=== PATIENT | female | born 1960 | race American Indian/Alaskan Native ===

== ENCOUNTER 2017-08-02 10:02 | Day surgery (SDC) | payer MEDICARE, OTHER ==
[2017-07-29 12:01] VITALS: BMI 28.3
[2017-08-02 10:37] LABS: BASO # 0.03 K/mm3 (0.0-2.0); BASO % 0.7 % (0.0-3.0); EOS # 0.4 (0.0-0.7); EOS % 7.9 % (1.5-5.0); GRAN # 2.44 (1.4-6.5); GRAN % 55.4 % (50.0-68.0); LYMPH # 1.1 (1.2-3.4); LYMPH % 24.7 % (22.0-35.0); MEAN CELL VOLUME 99.2 fl (80.0-105.0); MEAN CORPUSCULAR HEMOGLOBIN 29.5 pg (25.0-35.0); MEAN CORPUSCULAR HGB CONC 29.7 g/dl (31.0-37.0); MONO # 0.5 (0.1-0.6); MONO % 11.3 % (1.0-6.0); RED CELL DISTRIBUTION WIDTH 23.2 % (11.5-14.5); WHITE BLOOD COUNT 4.4 10^3/ul (4.5-11.0)
[2017-08-02 10:46] LABS: CALCIUM 9.8 mg/dL (8.4-10.5); POTASSIUM 4.9 mmol/L (3.6-5.0)
[2017-08-02 10:56] LABS: INR 1.01 (0.93-1.08); PARTIAL THROMBOPLASTIN TIME 27.4 Seconds (25.1-36.5)
[2017-08-02] MEDS ORDERED: Lidocaine 2% Inj (20ml) ONE (12:06)
[2017-08-02] MEDS ORDERED: Midazolam 2 MG/2 ML VIAL ONE ×3 (12:07→14:44)
[2017-08-02] MEDS ORDERED: Vancomycin 500 mg (Oral/Rectal USE) ONE (13:36)
[2017-08-02] MEDS ORDERED: Iodixanol 320 MG/ML 100 ML BOTTLE IV ONE (14:40)
[2017-08-02] MEDS ORDERED: Oxycodone/Acetaminophen 5/325 mg Tab PO PRN (15:20)
[2017-08-02] MEDS ORDERED: Sodium Chloride 0.45% 1,000 ML IV SCH (15:30)
[2017-08-02 16:25] VITALS: BP 136/51; PULSE 65; RESP 18; TEMP 97.9; O2SAT 96
--- NOTE | 2017-08-02 19:40 | VASCULAR ---
PROCEDURE: Replace tunneled trans lumbar dialysis catheter CLINICAL HISTORY: End stage renal disease. Malfunctioning tunneled dialysis catheter. PHYSICIAN(S): Joel Ho M.D. TECHNIQUE: The relative risks and indications for the procedure were explained to the patient and consent obtained. The patient was placed prone on the arteriogram table and the tunneled trans lumbar dialysis catheter prepped and draped in the usual sterile fashion. Antibiotics were given prior to the procedure. 1% Xylocaine was used to anesthetize the skin soft tissues at the vein insertion site. A 2 cm incision was performed and the catheter bluntly dissected. Both ends of the catheter controlled and the catheter transected. The cuff and soft tissue portion of the catheter were anesthetized with 1% Xylocaine. Blunt dissection was performed. The cuffed portion of the catheter was removed. A 0.035 angled Glidewire was advanced through the catheter fragment and advanced to the right atrium. The old catheter was removed. A new 35 cm dialysis catheter was advanced to the hepatic segment of the IVC. The catheter was tunneled. Unfortunately the catheter would not inject or aspirate easily. Subsequently a venogram was performed through the dialysis catheter. 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 0.035 wire was advanced through the catheter. 35 cm catheter was removed. A new 55 cm tunneled dialysis catheter was advanced with its tip in the right atrium. Catheter was tunneled around the right flank. The catheter was flushed and secured. The patient tolerated the procedure well. FINDINGS: There is thrombosis of the hepatic segment of the IVC. The tunnel dialysis catheter had to be advanced into the right atrium. IMPRESSION: 1. Replacement of the patient's tunneled trans lumbar dialysis catheter. 2. 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 The dialysis catheter was advanced into the right atrium.
== END 2017-08-02 18:40 | disposition home or self-care (01) ==
LOC: SDSVAS 10:02
PROVIDERS: ATTEND Radiology Vascular & Interventional Radiology
DX: T82.868A Thrombosis due to vascular prosthetic devices, implants and grafts, initial encounter (principal); N18.6 End stage renal disease; Y84.8 Other medical procedures as the cause of abnormal reaction of the patient, or of later complication, without mention of misadventure at the time of the procedure

== ENCOUNTER 2017-08-03 18:42 | Inpatient (IN) | payer MEDICARE, OTHER ==
[2017-08-03 19:25] LABS: BASO # 0.02 K/mm3 (0.0-2.0); BASO % 0.4 % (0.0-3.0); EOS # 0.3 (0.0-0.7); GRAN # 3.41 (1.4-6.5); GRAN % 61.6 % (50.0-68.0); LYMPH # 1.2 (1.2-3.4); LYMPH % 21.5 % (22.0-35.0); MEAN CELL VOLUME 97.3 fl (80.0-105.0); MEAN CORPUSCULAR HEMOGLOBIN 30.2 pg (25.0-35.0); MEAN PLATELET VOLUME 10.1 fl (7.0-11.0); MONO # 0.6 (0.1-0.6); MONO % 10.5 % (1.0-6.0); RED CELL DISTRIBUTION WIDTH 22.6 % (11.5-14.5); WHITE BLOOD COUNT 5.5 10^3/ul (4.5-11.0)
--- NOTE | 2017-08-03 19:29 | ED PDOC ---
Arrival/HPI - General Historian: Patient <Bebe Fernandez PA-C - Last Filed: 08/03/17 22:49> <Sobeida Escobar - Last Filed: 08/04/17 00:00> - General Chief Complaint: Medical Clearance Time Seen by Provider: 08/03/17 18:52 - History of Present Illness Narrative History of Present Illness (Text): 08/03/17 19:26 57-year-old female with past medical history of diabetes, HIV, end-stage renal disease on dialysis Tuesday and Tuesday, presents for evaluation of failed access site for her dialysis. Patient states that she is here to see Dr. Joel Ho to have an access placed. Patient states the last time she had dialysis was on Tuesday and is due to have one today. Denies any fever, chills, headache, dizziness, chest pain, shortness of breath, abdominal pain, nausea, vomiting. Otherwise the patient has no additional complaints at this time, states that she feels well. PMD Alexsander (Bebe Fernandez PA-C) Past Medical History - Provider Review Nursing Documentation Reviewed: Yes - Infectious Disease Hx of Infectious Diseases: None - Cardiac Hx Pacemaker: No - Pulmonary Hx Respiratory Disorders: No - Neurological Hx Dementia: Yes - HEENT Hx HEENT Disorder: Yes Hx Glaucoma: Yes (L Eye) - Renal Hx Renal Disorder: Yes Hx Dialysis: Yes Date of Last Dialysis Treatment: 07/11/17 - Endocrine/Metabolic Hx Hypothyroidism: Yes - Hematological/Oncological Hx Blood Transfusions: (UNKNOWN) - Integumentary Hx Dermatological Disorder: No - Musculoskeletal/Rheumatological Hx Musculoskeletal Disorders: Yes - Gastrointestinal Hx Gastrointestinal Disorders: No - Genitourinary/Gynecological Hx Genitourinary Disorders: Yes Other/Comment: oliguria, on hemodialysis MWF - Psychiatric Hx Emotional Abuse: No Hx Physical Abuse: No Hx Substance Use: No - Surgical History Hx Amputation: Yes (RIGHT BKA) Hx Orthopedic Surgery: Yes Hx Vascular Access Device: Yes (R lower back area for HD) - Anesthesia Hx Anesthesia Reactions: No - Suicidal Assessment Feels Threatened In Home Enviroment: No <Bebe Fernandez PA-C - Last Filed: 08/03/17 22:49> Family/Social History - Physician Review Nursing Documentation Reviewed: Yes Family/Social History: Unknown Family HX Smoking Status: Former Smoker Hx Alcohol Use: No Hx Substance Use: No <Bebe Fernandez PA-C - Last Filed: 08/03/17 22:49> Allergies/Home Meds <Bebe Fernandez PA-C - Last Filed: 08/03/17 22:49> <Sobeida Escobar - Last Filed: 08/04/17 00:00> Allergies/Adverse Reactions: Allergies No Known Allergies Allergy (Verified 07/29/17 12:01) Home Medications: Home Meds Medication Instructions Recorded Confirmed Nateglinide 60 mg PO DAILY 10/27/13 08/02/17 Brimonidine Tartrate/Timolol 1 drop OP Q12H 12/24/13 08/02/17 [Combigan 0.2%-0.5% Eye Drops] Emtricitabine/Tenofovir Diso 1 tab PO DAILY 07/29/17 08/02/17 [Truvada 200 MG-300 MG] Insulin Human Regular [Novolin R] 1 - 7 unit SC ACHS 07/29/17 08/02/17 Menthol/Zinc Oxide [Calmoseptine 1 applic TP Q8H 07/29/17 08/02/17 Ointment] Review of Systems - Review of Systems Constitutional: Normal. absent: Fatigue, Weight Change, Fevers Respiratory: Normal. absent: SOB, Cough, Sputum Cardiovascular: Normal. absent: Chest Pain, Palpitations, Edema Gastrointestinal: Normal. absent: Abdominal Pain, Stool Changes, Constipation Musculoskeletal: Normal Skin: Normal. absent: Rash, Pruritis, Skin Lesions Neurological: Normal. absent: Headache, Dizziness, Focal Weakness <Bebe Fernandez PA-C - Last Filed: 08/03/17 22:49> Physical Exam <Bebe Fernandez PA-C - Last Filed: 08/03/17 22:49> <Sobeida Escobar - Last Filed: 08/04/17 00:00> - Physical Exam Narrative Physical Exam (Text): 08/03/17 19:29 GENERAL APPEARANCE: Patient is awake, alert, oriented x 3, in no acute distress. SKIN: Warm, dry; (-) cyanosis. EYES: (-) conjunctival pallor. ENMT: Mucous membranes moist. NECK: (-) tenderness, (-) stiffness, (-) lymphadenopathy, (-) JVD. CHEST AND RESPIRATORY: (-) rash, (-) chest wall tenderness. Lungs: (-) rales , (-) rhonchi, (-) wheezes, (-) rub; breath sounds equal bilaterally. HEART AND CARDIOVASCULAR: (-) irregularity; (-) murmur, (-) gallop, (-) rub. ABDOMEN AND GI: (+) dialysis catheter to the R flank, Soft; (-) distention, (- ) tenderness, (-) palpable pulsatile mass. EXTREMITIES: (+) picc line to the R arm, (-) deformity; (-) edema, (-) calf tenderness. (+) distal pulses. NEURO AND PSYCH: Mental status as above. Cranial nerves grossly intact; strength symmetric. (Bebe Fernandez PA-C) Vital Signs Temp Pulse Resp BP Pulse Ox 08/03/17 22:45 68 12 181/75 H 99 08/03/17 22:30 73 182/78 H 98 08/03/17 22:15 78 18 196/80 H 98 08/03/17 22:00 74 16 145/87 94 L 08/03/17 18:52 99.6 F 76 18 130/73 99 Medical Decision Making <Bebe Fernandez PA-C - Last Filed: 08/03/17 22:49> <Sobeida Escobar - Last Filed: 08/04/17 00:00> ED Course and Treatment: 08/03/17 19:28 57-year-old female with past medical history of diabetes, HIV, end-stage renal disease on dialysis Tuesday and Tuesday, presents for evaluation of failed access site for her dialysis, she is here to see Dr. Joel Ho to have an access placed. Dr. Ho called and spoke to the HUMAN RESOURCES PROJECT MANAGER and is requesting for labs and IV access at this time. He is requesting to be called once the lab results have returned. Plan: -- Labs -- IV -- Reassess and disposition HUMAN RESOURCES PROJECT MANAGER attempted to obtain labs from picc line, however she states that the picc line is not functional. IV access obtained instead, labs drawn and sent. Patient went to vascular with Dr. Tete Ho. Labs reviewed. K 5.4. EKG and kayexalate PO ordered. Case d/w Dr. Grace and medical data analyst agree with plan for inpt admit for HD tomorrow. (Jim GARRETT,Bebe Strickland) - Lab Interpretations Lab Results: 08/03/17 19:05 08/03/17 20:09 Lab Results 08/03/17 20:25: Blood Type B POSITIVE, Antibody Screen Negative, BBK History Checked Patient has bt 08/03/17 20:09: Sodium 141, Potassium 5.4 H, Chloride 99, Carbon Dioxide 28, Anion Gap 19, BUN 39 H, Creatinine 7.3 H, Est GFR ( Amer) 7, Est GFR (Non -Af Amer) 6, Random Glucose 78, Calcium 10.0, Total Bilirubin 0.8, AST 25, ALT 15, Alkaline Phosphatase 151 H D, Total Protein 8.9 H, Albumin 3.9, Globulin 5.0 , Albumin/Globulin Ratio 0.8 L 08/03/17 20:09: PT 10.9, INR 1.00, APTT 31.7 08/03/17 19:05: WBC 5.5 D, RBC 4.01, Hgb 12.1, Hct 39.0, MCV 97.3, MCH 30.2, MCHC 31.0, RDW 22.6 H, Plt Count 215, MPV 10.1, Gran % 61.6, Lymph % (Auto) 21.5 L, Dillon % (Auto) 10.5 H, Eos % (Auto) 6.0 H, Baso % (Auto) 0.4, Gran # 3.41 , Lymph # 1.2, Dillon # 0.6, Eos # 0.3, Baso # 0.02 - RAD Interpretation Radiology Orders: 08/03/17 20:00 CAR PERIPHERAL VASCULAR ORDER [VASCULAR] Stat - Medication Orders Current Medication Orders: Discontinued Medications Sodium Polystyrene Sulfonate (Kayexalate Susp) 30 gm PO STAT STA Stop: 08/03/17 20:56 - PA / SUBSTANCE ABUSE COUNSELOR / Resident Statement JACQUE has reviewed & agrees with the documentation as recorded. <Bebe Fernandez PA-C - Last Filed: 08/03/17 22:49> - PA / SUBSTANCE ABUSE COUNSELOR / Resident Statement MD/DO has reviewed & agrees with the documentation as recorded. <Sobeida Escobar - Last Filed: 08/04/17 00:00> Disposition/Present on Arrival - Present on Arrival Any Indicators Present on Arrival: Yes History of DVT/PE: No History of Uncontrolled Diabetes: Yes Urinary Catheter: No History of Decub. Ulcer: No History Surgical Site Infection Following: None - Disposition Have Diagnosis and Disposition been Completed?: Yes Disposition Time: 21:00 Patient Plan: Admission <Bebe Fernandez PA-C - Last Filed: 08/03/17 22:49> <Sobeida Escobar - Last Filed: 08/04/17 00:00> - Disposition Diagnosis: ESRD (end stage renal disease), Hemodialysis catheter malfunction Disposition: HOSPITALIZED Condition: STABLE
[2017-08-03] MEDS ORDERED: Lidocaine 2% Inj (20ml) ONE (19:58)
[2017-08-03] MEDS ORDERED: Midazolam 2 MG/2 ML VIAL ONE ×3 (19:59→21:14)
[2017-08-03] MEDS ORDERED: Iodixanol 320 MG/ML 100 ML BOTTLE IV ONE (20:01)
[2017-08-03 20:33] LABS: ALB/GLOB RATIO 0.8 (1.1-1.8); BILIRUBIN,TOTAL 0.8 mg/dL (0.2-1.3); POTASSIUM 5.4 mmol/L (3.6-5.0); TOTAL PROTEIN 8.9 g/dL (5.8-8.3)
[2017-08-03 20:51] LABS: PARTIAL THROMBOPLASTIN TIME 31.7 Seconds (25.1-36.5)
[2017-08-03] MEDS ORDERED: Sod Polystyrene Sulf 15 gm/60 ml Susp PO STA (20:55)
[2017-08-03] MEDS ORDERED: Vancomycin 500 mg (Oral/Rectal USE) ONE (21:41)
[2017-08-03] MEDS ORDERED: [UNRECOGNIZED DRUG - OTHER] IV ONE (22:22)
--- NOTE | 2017-08-04 01:51 | CP.PCM.HP ---
<Sondra Purcell - Last Filed: 08/04/17 01:43> History of Present Illness - History of Present Illness History of Present Illness: Sondra Purcell DO PGY1 - Internal Medicine H&P CC: Dialysis access HPI: 57 yo F with PMH of diabetes, HTN, HLD, ESRD on HD (MWF), HIV, foot ulcerations, peripheral vascular disease. Presented to the ER for failure of her dialysis access site. According to the son, the pastient last had dialysis on Tuesday (3 days ago), and was due for dialysis yesterday, but in the dialysis center, the access site (in right low back, IVC) was found to be obstructed. She presented to the ER, and now is s/p placement of portacath with Dr. Joel Ho. She is seen at bedside, still sleepy/lethargic after her procedure, but arousable and responsive. She reports feeling well overall, with no particular complaints. She now denies any CP, SOB, fever, chills, N/V/D, headache. 12 point ROS obtained and was negative except as in HPI PMH: As above PSH: Right BKA, multiple AVF, portacath placement today Soc: Denies tobacco, alcohol, or illicits FHx: Noncontributory All: NKDA Present on Admission - Present on Admission Any Indicators Present on Admission: No Past Patient History - Infectious Disease Hx of Infectious Diseases: None - Past Medical History & Family History Past Medical History?: Yes - Past Social History Smoking Status: Former Smoker - CARDIAC Hx Cardiac Disorders: Yes Hx Congestive Heart Failure: Yes Hx Hypertension: Yes - PULMONARY Hx Respiratory Disorders: No - NEUROLOGICAL Hx Dementia: Yes - HEENT Hx HEENT Problems: Yes (wears glasses) Hx Glaucoma: Yes - RENAL Hx Chronic Kidney Disease: Yes Hx Renal Failure: Yes - ENDOCRINE/METABOLIC Hx Endocrine Disorders: Yes Hx Diabetes Mellitus Type 2: Yes Hx Hypothyroidism: Yes - HEMATOLOGICAL/ONCOLOGICAL Hx Blood Disorders: Yes Hx Human Immunodeficiency Virus (HIV): Yes - INTEGUMENTARY Hx Dermatological Problems: No - MUSCULOSKELETAL/RHEUMATOLOGICAL Hx Musculoskeletal Disorders: Yes (Right BKA) - GASTROINTESTINAL Hx Gastrointestinal Disorders: No - GENITOURINARY/GYNECOLOGICAL Hx Genitourinary Disorders: Yes Other/Comment: oliguria, on hemodialysis MWF - PSYCHIATRIC Hx Emotional Abuse: No Hx Physical Abuse: No Hx Substance Use: No - SURGICAL HISTORY Hx Surgeries: Yes Hx Amputation: Yes (Right BKA) - ANESTHESIA Hx Anesthesia Reactions: No Meds Allergies/Adverse Reactions: Allergies Allergy/AdvReac Type Severity Reaction Status Date / Time No Known Allergies Allergy Verified 07/29/17 12:01 Physical Exam - Constitutional Appears: Non-toxic, No Acute Distress, Chronically Ill - Head Exam Head Exam: ATRAUMATIC, NORMOCEPHALIC - Eye Exam Eye Exam: EOMI, Normal appearance - ENT Exam ENT Exam: Mucous Membranes Moist - Neck Exam Neck exam: Positive for: Normal Inspection - Respiratory Exam Respiratory Exam: Clear to Auscultation Bilateral, NORMAL BREATHING PATTERN - Cardiovascular Exam Cardiovascular Exam: REGULAR RHYTHM, +S1, +S2 - GI/Abdominal Exam GI & Abdominal Exam: Normal Bowel Sounds, Soft. absent: Tenderness - Extremities Exam Additional comments: Right BKA, left foot with healing ulcer - Neurological Exam Neurological exam: Alert, Oriented x3 - Psychiatric Exam Psychiatric exam: Normal Affect, Normal Mood - Skin Skin Exam: Dry, Intact Results - Vital Signs Recent Vital Signs: Last Vital Signs Temp 99.6 F 08/03/17 18:52 Pulse 68 08/03/17 22:45 Resp 12 08/03/17 22:45 BP 181/75 H 08/03/17 22:45 Pulse Ox 99 08/03/17 22:45 - Labs Result Diagrams: 08/03/17 19:05 08/03/17 20:09 Assessment & Plan - Assessment and Plan (Free Text) Assessment: 57 yo F with PMH of diabetes, HTN, HLD, ESRD on HD (MWF), HIV, foot ulcerations , peripheral vascular disease. Presented for failed dialysis access, missed dialysis session today; now s/p portacath placement 1. Failed dialysis access, s/p portacath placement - POD0, site appears C/D/I, without bleeding or drainage - IR (Dr. Ho) following, appreciate recs 2. ESRD on HD (M/W/F) - Patient missed scheduled dialysis session yesterday due to failed access, last dialysis on 07/31/17 - Consult nephro, appreciate recs - Plan for HD tomorrow - Continue home meds 3. HTN - Patient has persistently elevated BP, including immediately postoperatively - Current elevation likely 2/2 missed HD session today, while patient is anuric - Patient is asymptomatic, without signs of acute end-organ damage - Resume home meds, continue to monitor 4. h/o DM, HLD, HIV, PVD - Continue home meds GI/DVT Ppx: Protonix, SCDs <Alida Grace - Last Filed: 08/04/17 06:41> Results - Vital Signs Recent Vital Signs: Last Vital Signs Temp 98 F 08/04/17 06:00 Pulse 67 08/04/17 06:00 Resp 20 08/04/17 06:00 BP 135/74 08/04/17 06:00 Pulse Ox 100 08/04/17 06:00 - Labs Result Diagrams: 08/03/17 19:05 08/03/17 20:09 Attending/Attestation - Attestation I have personally seen and examined this patient.: Yes I have fully participated in the care of the patient.: Yes I have reviewed all pertinent clinical information: Yes Notes (Text): 08/04/17 06:39 Patient was seen when she was in bed # 372-01. She was reluctant to talk. Agree with history, physical examination, assessment and plan.
[2017-08-04 02:41] VITALS: BMI 25.4
[2017-08-04] MEDS: Pantoprazole 40 mg EC Tab PO SCH (06:42)
[2017-08-04] MEDS: Multivitamin Vitamin B Complex (Nephro-Vite) Tab PO SCH (09:18)
[2017-08-04 10:35] LABS: BASO # 0.02 K/mm3 (0.0-2.0); BASO % 0.6 % (0.0-3.0); EOS # 0.2 (0.0-0.7); EOS % 6.7 % (1.5-5.0); GRAN # 2.37 (1.4-6.5); HEMATOCRIT 32.5 % (36.0-48.0); LYMPH # 0.7 (1.2-3.4); LYMPH % 19.2 % (22.0-35.0); MEAN CELL VOLUME 98.5 fl (80.0-105.0); MEAN CORPUSCULAR HEMOGLOBIN 29.1 pg (25.0-35.0); MEAN CORPUSCULAR HGB CONC 29.5 g/dl (31.0-37.0); MEAN PLATELET VOLUME 9.9 fl (7.0-11.0); MONO # 0.3 (0.1-0.6); MONO % 7.5 % (1.0-6.0); RED CELL DISTRIBUTION WIDTH 22.3 % (11.5-14.5); WHITE BLOOD COUNT 3.6 10^3/ul (4.5-11.0)
[2017-08-04 11:07] LABS: ALB/GLOB RATIO 0.8 (1.1-1.8); BILIRUBIN,TOTAL 0.6 mg/dL (0.2-1.3); CALCIUM 8.9 mg/dL (8.4-10.5); MAGNESIUM 2.5 mg/dL (1.7-2.2); PHOSPHOROUS 6.4 mg/dL (2.5-4.5); TOTAL PROTEIN 7.5 g/dL (5.8-8.3)
[2017-08-04] MEDS: Lopinavir/Ritonavir Tab PO SCH ×2 (12:07→17:22)
--- NOTE | 2017-08-04 16:48 | CP.PCM.CON ---
History of Present Illness - History of Present Illness History of Present Illness: Initial Nephrology Consultation: Assessment: Stable dialysis access dysfunction, Hyperkalemia Diabetic chronic Kidney Disease (E11.22) Hypertensive Chronic Kidney Disease (I12.0) End stage renal disease (N18.6) dependence on hemodialysis (Z99.2) (MWF) via catheter Anemia (D64.9), Hyperphosphatemia (E83.39), Secondary Hyperparathyroidism (E21.1 ), HTN (I12.0) Plan: for HD today as ordered but unable to complete HD today due to new catheter dysfunction. IR consult for alternative strategy to obtain dialysis access. thereafter, plan for next HD tomorrow continue with Nephrovite 1 tab/day. PRBC as needed for anemia. On SLY as aransep weekly, last Hb 9.8 Continue with phos binders home dose, last phos level 6.4 BP control with meds as ordered. Patient not on RAAS mar but may add if BP high Glycemic control, Dialysis consistent diet Further work up/management as per primary team Dose meds/antibiotics (if needed) for ESRD status. Avoid fleets enema/magnesium based laxatives. d/c plan once has functional dialysis access Thanks for allowing me to participate in care of your patient. Will follow patient with you. Please call if any Qs. d/w team Dr Lobito Jeong Office: [phone] Chief Complaint; unable to get dialysis HPI: Pt is a 57 y/o F with hx of ESRD on hemodialysis (MWF) via IVC catheter, last dialysis tuesday, chronic anemia, hyperphosphatemia, secondary hyperparathyroidism, Diabetes Mellitus, hypertension, HIV came as unable to get dialysis from her access. she has new permacath placed by IR. Denies chest pain, palpitation, shortness of breath, leg swelling she is on HD x [address] Brady @ [facility] ROS: Constitutional Symptoms: Denies fever. No chills. No Recent Weight Changes Eyes: denies change in vision, denies watery eyes, denies double vision Ears/Nose/Mouth/Throat: Denies Abnormal Taste. No Bad breath or Bad Taste. Cardiovascular: No chest pain. There is no shortness of breath. No palpitations. Pulmonary: No shortness of breath or cough. Gastrointestinal: denies abdominal pain No nausea. No vomiting. Denies change in bowel habits. Denies Bleeding Genitourinary: makes no urine Neurological: Denies headaches. No dizziness. Denies loss of balance. Denies weakness, denies tingling/numbness Dermatological: No Rash or Bruising or ulcers. Psychiatric: Denies Anxiety. No depression. Denies hallucinations. Rheumatological: No joint pain. Denies Joint swelling Endocrine: Denies over tiredness. Denies Fatigue and denies Heat/Cold Intolerance. All other negative. Physical Examination: General Appearance: Comfortable, in no acute respiratory distress, co-operative . Vitals reviewed and noted as below Head; Atraumatic, normocephalic ENT: no ulcers no thrush. Tongue is midline. Oropharynx: no rash or ulcers. EYES: Pupils are equal, round and reactive to light accommodation. Eye muscles and extraocular movement intact. Sclera is anicteric. Neck; supple no lymphadenopathy, no thyromegaly or bruit Lungs: Normal respiratory rate/effort. Breath sounds bilateral equal and clear Heart: Normal rate. s1s2 normal. No rub or gallop. Extremities: no edema. No varicose veins. has Rt BKA Neurological: Patient is alert, awake and oriented to person, place and time. No focal deficit. Strength bilateral appropriate and equal Skin: Warm and dry. Normal turgor. No rash. Palpitation: Normal elasticity for age Abdomen: Abdomen is soft. Bowel sounds +. There is no abdominal tenderness, no guarding/rigidity or organomegaly Psych: normal insight and normal affect/mood MSK: no joint tenderness or swelling. Digits and nails normal, no deformity : kidney or bladder not palpable Access: permacath Labs/imaging reviewed. Past medical history, past surgical history, family history, social history, allergy reviewed and noted as below Family Hx: no hx of CKD. Non contributory Past Patient History - Infectious Disease Hx of Infectious Diseases: None - Past Medical History & Family History Past Medical History?: Yes - Past Social History Smoking Status: Former Smoker - CARDIAC Hx Cardiac Disorders: Yes Hx Congestive Heart Failure: Yes Hx Hypertension: Yes - PULMONARY Hx Respiratory Disorders: No - NEUROLOGICAL Hx Dementia: Yes - HEENT Hx HEENT Problems: Yes (wears glasses) Hx Glaucoma: Yes - RENAL Hx Chronic Kidney Disease: Yes Hx Renal Failure: Yes - ENDOCRINE/METABOLIC Hx Endocrine Disorders: Yes Hx Diabetes Mellitus Type 2: Yes Hx Hypothyroidism: Yes - HEMATOLOGICAL/ONCOLOGICAL Hx Blood Disorders: Yes Hx Human Immunodeficiency Virus (HIV): Yes - INTEGUMENTARY Hx Dermatological Problems: No - MUSCULOSKELETAL/RHEUMATOLOGICAL Hx Musculoskeletal Disorders: Yes (Right BKA) - GASTROINTESTINAL Hx Gastrointestinal Disorders: No - GENITOURINARY/GYNECOLOGICAL Hx Genitourinary Disorders: Yes Other/Comment: oliguria, on hemodialysis MWF - PSYCHIATRIC Hx Emotional Abuse: No Hx Physical Abuse: No Hx Substance Use: No - SURGICAL HISTORY Hx Surgeries: Yes Hx Amputation: Yes (Right BKA) - ANESTHESIA Hx Anesthesia Reactions: No Meds Allergies/Adverse Reactions: Allergies Allergy/AdvReac Type Severity Reaction Status Date / Time No Known Allergies Allergy Verified 07/29/17 12:01 - Medications Medications: Current Medications Clopidogrel Bisulfate (Plavix) 75 mg PO DAILY [facility] Last Admin: 08/04/17 12:08 Dose: Not Given Darbepoetin Brian (Aranesp) 40 mcg IVP ONCE ONE Stop: 08/05/17 13:56 Glyburide (Micronase) 1.25 mg PO BRKDIN [facility] Last Admin: 08/04/17 09:19 Dose: Not Given Heparin Sodium (Porcine) (Heparin) 4,000 units IVP TTS [facility] Last Admin: 08/04/17 11:30 Dose: 4,000 units Isosorbide Mononitrate (Imdur) 60 mg PO ACB [facility] Last Admin: 08/04/17 09:18 Dose: 60 mg Lopinavir/Ritonavir (Kaletra 200-50 Mg) 2 cap PO BID [facility] Last Admin: 08/04/17 12:07 Dose: Not Given Metoprolol Tartrate (Lopressor) 25 mg PO BRKDIN [facility] Last Admin: 08/04/17 06:45 Dose: 25 mg Nateglinide (Starlix) 60 mg PO AC [facility] Last Admin: 08/04/17 12:10 Dose: Not Given Pantoprazole Sodium (Protonix Ec Tab) 40 mg PO 0600 [facility] Last Admin: 08/04/17 06:42 Dose: 40 mg Raltegravir (Isentress) 400 mg PO BID [facility] Last Admin: 08/04/17 12:07 Dose: Not Given Sevelamer HCl (Renagel) 800 mg PO TID [facility] Last Admin: 08/04/17 15:34 Dose: 800 mg Vitamin B Complex/Vit C/Folic Acid (Nephro-Анна) 1 tab PO 0800 [facility] Last Admin: 08/04/17 09:18 Dose: 1 tab Results - Vital Signs Recent Vital Signs: Last Vital Signs Temp 98.0 F 08/04/17 06:00 Pulse 72 08/04/17 14:00 Resp 20 08/04/17 06:00 BP 135/74 08/04/17 06:45 Pulse Ox 100 08/04/17 06:00 - Labs Result Diagrams: 08/04/17 10:30 08/04/17 10:30 Labs: Laboratory Results - last 24 hr 08/04/17 08/04/17 10:30 10:30 WBC 3.6 L D RBC 3.30 L Hgb 9.6 L D Hct 32.5 L MCV 98.5 MCH 29.1 MCHC 29.5 L RDW 22.3 H Plt Count 164 MPV 9.9 Gran % 66.0 Lymph % (Auto) 19.2 L Dewitt % (Auto) 7.5 H Eos % (Auto) 6.7 H Baso % (Auto) 0.6 Gran # 2.37 Lymph # 0.7 L Dewitt # 0.3 Eos # 0.2 Baso # 0.02 Sodium 139 Potassium 5.0 Chloride 99 Carbon Dioxide 31 Anion Gap 14 BUN 33 H Creatinine 6.3 H Est GFR ( Amer) 8 Est GFR (Non-Af Amer) 7 Random Glucose 96 Calcium 8.9 Phosphorus 6.4 H Magnesium 2.5 H Total Bilirubin 0.6 AST 29 ALT 23 Alkaline Phosphatase 114 Total Protein 7.5 Albumin 3.3 Globulin 4.2 Albumin/Globulin Ratio 0.8 L
[2017-08-05 06:57] LABS: BASO # 0.01 K/mm3 (0.0-2.0); BASO % 0.2 % (0.0-3.0); EOS # 0.2 (0.0-0.7); EOS % 3.5 % (1.5-5.0); GRAN # 3.99 (1.4-6.5); GRAN % 62.8 % (50.0-68.0); HEMATOCRIT 33.1 % (36.0-48.0); LYMPH # 1.2 (1.2-3.4); LYMPH % 18.8 % (22.0-35.0); MEAN CELL VOLUME 98.2 fl (80.0-105.0); MEAN CORPUSCULAR HEMOGLOBIN 29.4 pg (25.0-35.0); MEAN CORPUSCULAR HGB CONC 29.9 g/dl (31.0-37.0); MONO # 0.9 (0.1-0.6); MONO % 14.7 % (1.0-6.0); WHITE BLOOD COUNT 6.3 10^3/ul (4.5-11.0)
[2017-08-05 07:33] LABS: ALB/GLOB RATIO 0.8 (1.1-1.8); BILIRUBIN,TOTAL 0.6 mg/dL (0.2-1.3); CALCIUM 9.5 mg/dL (8.4-10.5); MAGNESIUM 2.7 mg/dL (1.7-2.2); PHOSPHOROUS 6.9 mg/dL (2.5-4.5); TOTAL PROTEIN 7.9 g/dL (5.8-8.3)
[2017-08-05] MEDS: Pantoprazole 40 mg EC Tab PO SCH (08:20)
[2017-08-05] MEDS: Multivitamin Vitamin B Complex (Nephro-Vite) Tab PO SCH (08:20)
[2017-08-05] MEDS: Lopinavir/Ritonavir Tab PO SCH ×2 (10:00→17:33)
--- NOTE | 2017-08-05 11:41 | CP.PCM.PN ---
<Cristofer Fine - Last Filed: 08/05/17 11:38> Subjective - Date & Time of Evaluation Date of Evaluation: 08/05/17 Time of Evaluation: 09:15 - Subjective Subjective: Medicine progress note: Pt seen and examinned at bedside. No acute events overnight. Pt Portacath not working. Pt states that she is doing well with no complaints. Denies any f/c, headaches, sob, chest pain, n/v/d. Objective - Vital Signs/Intake and Output Vital Signs (last 24 hours): Temp Pulse Resp BP Pulse Ox 98.3 F 68 20 108/54 L 96 08/05/17 05:59 08/05/17 05:59 08/05/17 05:59 08/05/17 05:59 08/05/17 05:59 Intake and Output: 08/05/17 08/05/17 06:59 18:59 Intake Total 360 Balance 360 - Medications Medications: Current Medications Clopidogrel Bisulfate (Plavix) 75 mg PO DAILY [facility] Last Admin: 08/05/17 10:00 Dose: 75 mg Darbepoetin Brian (Aranesp) 40 mcg IVP ONCE ONE Stop: 08/05/17 13:56 Glyburide (Micronase) 1.25 mg PO BRKDIN [facility] Last Admin: 08/05/17 07:50 Dose: Not Given Heparin Sodium (Porcine) (Heparin) 4,000 units IVP TTS [facility] Last Admin: 08/04/17 11:30 Dose: 4,000 units Isosorbide Mononitrate (Imdur) 60 mg PO ACB [facility] Last Admin: 08/04/17 09:18 Dose: 60 mg Lopinavir/Ritonavir (Kaletra 200-50 Mg) 2 cap PO BID [facility] Last Admin: 08/05/17 10:00 Dose: 2 cap Metoprolol Tartrate (Lopressor) 25 mg PO BRKDIN [facility] Last Admin: 08/05/17 09:49 Dose: Not Given Nateglinide (Starlix) 60 mg PO AC [facility] Last Admin: 08/05/17 07:50 Dose: Not Given Pantoprazole Sodium (Protonix Ec Tab) 40 mg PO 0600 [facility] Last Admin: 08/05/17 08:20 Dose: 40 mg Raltegravir (Isentress) 400 mg PO BID [facility] Last Admin: 08/05/17 10:00 Dose: 400 mg Sevelamer HCl (Renagel) 800 mg PO TID [facility] Last Admin: 08/05/17 10:00 Dose: 800 mg Vitamin B Complex/Vit C/Folic Acid (Nephro-Анна) 1 tab PO 0800 [facility] Last Admin: 08/05/17 08:20 Dose: 1 tab - Labs Labs: 08/05/17 06:30 08/05/17 06:30 PT 10.9 SECONDS (9.4-12.5) 08/03/17 20:09 INR 1.00 (0.93-1.08) 08/03/17 20:09 APTT 31.7 Seconds (25.1-36.5) 08/03/17 20:09 - Constitutional Appears: No Acute Distress - Head Exam Head Exam: ATRAUMATIC, NORMOCEPHALIC - Eye Exam Eye Exam: EOMI, PERRL - ENT Exam ENT Exam: Mucous Membranes Moist - Respiratory Exam Respiratory Exam: Clear to Ausculation Bilateral. absent: Rales, Wheezes - Cardiovascular Exam Cardiovascular Exam: REGULAR RHYTHM, +S1, +S2 - GI/Abdominal Exam GI & Abdominal Exam: Soft. absent: Tenderness - Neurological Exam Neurological Exam: Alert, Awake, Oriented x3 - Psychiatric Exam Psychiatric exam: Normal Affect, Normal Mood - Skin Skin Exam: Dry, Intact, Warm Assessment and Plan - Assessment and Plan (Free Text) Assessment: 57 yo F with PMH of diabetes, HTN, HLD, ESRD on HD (MWF), HIV, foot ulcerations , peripheral vascular disease s/p portacath placement which is not functioning. Reconsulted vascular for recs. 1. Failed dialysis access, s/p portacath placement which is not functioning properly - Reconsulted vascular for recs and possible replacement 2. ESRD on HD (M/W/F) - Consult nephro, appreciate recs - Plan for HD once a catheter is functioning - Continue home Aranesp and Renagel 3. HTN - Cont home metoprolol - Continue to monitor 4. Hx of DM - Continue home Glyburide 5. Hx of HIV - Cont home Kaletra and Isentress 6. GI/DVT Ppx: Protonix, SCDs Pt was seen and plan was discussed in detail with Dr Polo. <Shavon Polo - Last Filed: 08/05/17 14:09> Objective - Vital Signs/Intake and Output Vital Signs (last 24 hours): Temp Pulse Resp BP Pulse Ox 98.3 F 68 20 108/54 L 96 08/05/17 05:59 08/05/17 10:00 08/05/17 05:59 08/05/17 05:59 08/05/17 05:59 Intake and Output: 08/05/17 08/05/17 06:59 18:59 Intake Total 360 Balance 360 - Medications Medications: Current Medications Clopidogrel Bisulfate (Plavix) 75 mg PO DAILY [facility] Last Admin: 08/05/17 10:00 Dose: 75 mg Glyburide (Micronase) 1.25 mg PO BRKDIN [facility] Last Admin: 08/05/17 07:50 Dose: Not Given Heparin Sodium (Porcine) (Heparin) 4,000 units IVP TTS [facility] Last Admin: 08/04/17 11:30 Dose: 4,000 units Heparin Sodium (Porcine) (Heparin) 2,600 units ICA ONCE ONE Stop: 08/05/17 15:01 Heparin Sodium (Porcine) (Heparin) 2,800 units ICV ONCE ONE Stop: 08/05/17 15:01 Isosorbide Mononitrate (Imdur) 60 mg PO ACB [facility] Last Admin: 08/04/17 09:18 Dose: 60 mg Lopinavir/Ritonavir (Kaletra 200-50 Mg) 2 cap PO BID [facility] Last Admin: 08/05/17 10:00 Dose: 2 cap Metoprolol Tartrate (Lopressor) 25 mg PO BRKDIN [facility] Last Admin: 08/05/17 09:49 Dose: Not Given Nateglinide (Starlix) 60 mg PO AC [facility] Last Admin: 08/05/17 07:50 Dose: Not Given Pantoprazole Sodium (Protonix Ec Tab) 40 mg PO 0600 [facility] Last Admin: 08/05/17 08:20 Dose: 40 mg Raltegravir (Isentress) 400 mg PO BID [facility] Last Admin: 08/05/17 10:00 Dose: 400 mg Sevelamer HCl (Renagel) 800 mg PO TID [facility] Last Admin: 08/05/17 10:00 Dose: 800 mg Vitamin B Complex/Vit C/Folic Acid (Nephro-Анна) 1 tab PO 0800 [facility] Last Admin: 08/05/17 08:20 Dose: 1 tab - Labs Labs: 08/05/17 06:30 08/05/17 06:30 PT 10.9 SECONDS (9.4-12.5) 08/03/17 20:09 INR 1.00 (0.93-1.08) 08/03/17 20:09 APTT 31.7 Seconds (25.1-36.5) 08/03/17 20:09 Attending/Attestation - Attestation I have personally seen and examined this patient.: Yes I have fully participated in the care of the patient.: Yes I have reviewed all pertinent clinical information, including history, physical exam and plan: Yes Notes (Text): 08/05/17 14:04 57 year old female with past medical history of diabetes, hypertension, dyslipidemia, ESRD on HD, HIV and peripheral vascular disease who presented dialysis catheter dysfunction. IR evaluation was appreciated. Case was discussed with Dr. Ho for special catheter placement possibly next week. Case also discussed with nephrology; will continue with dialysis today and tomorrow. She was hypoglycemic this morning. Review of her prior A1Cs have been <6.0. Will hold her glyburide and starlix for now and repeat A1C level. Continue with home medications for HIV and hypertension. Possible d/c planning to [facility] tomorrow after dialysis with outpatient follow up with IR. Shavon Polo MD Hospitalist.
[2017-08-05] MEDS: Darbepoetin Alfa 40 mcg/ml Inj IVP ONE ×2 (12:41→15:30)
--- NOTE | 2017-08-05 14:05 | CP.PCM.PN ---
Subjective - Date & Time of Evaluation Date of Evaluation: 08/05/17 Time of Evaluation: 14:02 - Subjective Subjective: Nephrology Consultation: Assessment: Stable dialysis access dysfunction, Hyperkalemia Diabetic chronic Kidney Disease (E11.22) Hypertensive Chronic Kidney Disease (I12.0) End stage renal disease (N18.6) dependence on hemodialysis (Z99.2) (MWF) via catheter Anemia (D64.9), Hyperphosphatemia (E83.39), Secondary Hyperparathyroidism (E21.1 ), HTN (I12.0) Plan: for HD today as ordered but still has catheter dysfunction. IR consult appreciated, she will have special catheter placed as outpt next week. plan for next HD tomorrow too continue with Nephrovite 1 tab/day. PRBC as needed for anemia. On SLY as aransep weekly, last Hb 9.8 resume phos binders home dose, last phos level 6.9 BP control with meds as ordered. Patient not on RAAS mar but may add if BP high Glycemic control, Dialysis consistent diet Further work up/management as per primary team Dose meds/antibiotics (if needed) for ESRD status. Avoid fleets enema/magnesium based laxatives. d/c plan for tomorrow post HD Thanks for allowing me to participate in care of your patient. Will follow patient with you. Please call if any Qs. d/w team Dr Lobito Jeong Office: [phone] Chief Complaint; none today HPI: Pt is a 57 y/o F with hx of ESRD on hemodialysis (MWF) via IVC catheter, last dialysis tuesday, chronic anemia, hyperphosphatemia, secondary hyperparathyroidism, Diabetes Mellitus, hypertension, HIV came as unable to get dialysis from her access. she has new permacath placed by IR. Denies chest pain, palpitation, shortness of breath, leg swelling she is on HD x [address] Brady @ [place] ROS: Constitutional Symptoms: Denies fever. No chills. No Recent Weight Changes Eyes: denies change in vision, denies watery eyes, denies double vision Ears/Nose/Mouth/Throat: Denies Abnormal Taste. No Bad breath or Bad Taste. Cardiovascular: No chest pain. There is no shortness of breath. No palpitations. Pulmonary: No shortness of breath or cough. Gastrointestinal: denies abdominal pain No nausea. No vomiting. Denies change in bowel habits. Denies Bleeding Genitourinary: makes no urine Neurological: Denies headaches. No dizziness. Denies loss of balance. Denies weakness, denies tingling/numbness Dermatological: No Rash or Bruising or ulcers. Psychiatric: Denies Anxiety. No depression. Denies hallucinations. Rheumatological: No joint pain. Denies Joint swelling Endocrine: Denies over tiredness. Denies Fatigue and denies Heat/Cold Intolerance. All other negative. Physical Examination: General Appearance: Comfortable, in no acute respiratory distress, co-operative . Vitals reviewed and noted as below Head; Atraumatic, normocephalic ENT: no ulcers no thrush. Tongue is midline. Oropharynx: no rash or ulcers. EYES: Pupils are equal, round and reactive to light accommodation. Eye muscles and extraocular movement intact. Sclera is anicteric. Neck; supple no lymphadenopathy, no thyromegaly or bruit Lungs: Normal respiratory rate/effort. Breath sounds bilateral equal and clear Heart: Normal rate. s1s2 normal. No rub or gallop. Extremities: no edema. No varicose veins. has Rt BKA Neurological: Patient is alert, awake and oriented to person, place and time. No focal deficit. Strength bilateral appropriate and equal Skin: Warm and dry. Normal turgor. No rash. Palpitation: Normal elasticity for age Abdomen: Abdomen is soft. Bowel sounds +. There is no abdominal tenderness, no guarding/rigidity or organomegaly Psych: normal insight and normal affect/mood MSK: no joint tenderness or swelling. Digits and nails normal, no deformity : kidney or bladder not palpable Access: permacath Labs/imaging reviewed. Past medical history, past surgical history, family history, social history, allergy reviewed and noted as below Family Hx: no hx of CKD. Non contributory Objective - Vital Signs/Intake and Output Vital Signs (last 24 hours): Temp Pulse Resp BP Pulse Ox 98.3 F 68 20 108/54 L 96 08/05/17 05:59 08/05/17 10:00 08/05/17 05:59 08/05/17 05:59 08/05/17 05:59 Intake and Output: 08/05/17 08/05/17 06:59 18:59 Intake Total 360 Balance 360 - Medications Medications: Current Medications Clopidogrel Bisulfate (Plavix) 75 mg PO DAILY [facility] Last Admin: 08/05/17 10:00 Dose: 75 mg Glyburide (Micronase) 1.25 mg PO BRKDIN [facility] Last Admin: 08/05/17 07:50 Dose: Not Given Heparin Sodium (Porcine) (Heparin) 4,000 units IVP TTS [facility] Last Admin: 08/04/17 11:30 Dose: 4,000 units Heparin Sodium (Porcine) (Heparin) 2,600 units ICA ONCE ONE Stop: 08/05/17 15:01 Heparin Sodium (Porcine) (Heparin) 2,800 units ICV ONCE ONE Stop: 08/05/17 15:01 Isosorbide Mononitrate (Imdur) 60 mg PO ACB [facility] Last Admin: 08/04/17 09:18 Dose: 60 mg Lopinavir/Ritonavir (Kaletra 200-50 Mg) 2 cap PO BID [facility] Last Admin: 08/05/17 10:00 Dose: 2 cap Metoprolol Tartrate (Lopressor) 25 mg PO BRKDIN [facility] Last Admin: 08/05/17 09:49 Dose: Not Given Nateglinide (Starlix) 60 mg PO AC [facility] Last Admin: 08/05/17 07:50 Dose: Not Given Pantoprazole Sodium (Protonix Ec Tab) 40 mg PO 0600 [facility] Last Admin: 08/05/17 08:20 Dose: 40 mg Raltegravir (Isentress) 400 mg PO BID [facility] Last Admin: 08/05/17 10:00 Dose: 400 mg Sevelamer HCl (Renagel) 800 mg PO TID [facility] Last Admin: 08/05/17 10:00 Dose: 800 mg Vitamin B Complex/Vit C/Folic Acid (Nephro-Анна) 1 tab PO 0800 [facility] Last Admin: 08/05/17 08:20 Dose: 1 tab - Labs Labs: 08/05/17 06:30 08/05/17 06:30 PT 10.9 SECONDS (9.4-12.5) 08/03/17 20:09 INR 1.00 (0.93-1.08) 08/03/17 20:09 APTT 31.7 Seconds (25.1-36.5) 08/03/17 20:09
--- NOTE | 2017-08-05 15:28 | VASCULAR ---
PROCEDURE: Ultrasound and fluoroscopic tunneled right subclavian dialysis catheter. CLINICAL HISTORY: ESRD very limited upper and lower extremity venous access. Non functioning trans lumbar dialysis catheter. Attempt tunneled catheter placement. PHYSICIAN(S): Joel Ho M.D. TECHNIQUE: The relative risks and indications for the procedure were explained to the patient and informed written consent obtained. The patient was placed supine on the arteriography table and the right neck/chest was prepped and draped in the usual sterile fashion. 1% Xylocaine was used to anesthetize the skin and soft tissues at the puncture site. Conscious sedation and monitoring were provided throughout the procedure by a nurse. Under fluoroscopic and ultrasound guidance, the right axillo subclavian segment just distal to the stents was punctured under ultrasound guidance with a micropuncture set. 0.035 support wire was advanced through the right subclavian stent and placed in the right atrium. Sequential dilatation was performed with dilators. Subsequently a can into catheter was advanced with its tip in the right atrium. The catheter was flushed and secured. The translumbar catheter in the right atrium also remains. IMPRESSION: 1. Ultrasound and fluoroscopically placed right axillo subclavian tunneled dialysis catheter as described above
[2017-08-06 00:46] VITALS: O2SAT 98
--- NOTE | 2017-08-06 05:06 | CP.PCM.PN ---
Subjective - Date & Time of Evaluation Date of Evaluation: 08/06/17 Objective - Vital Signs/Intake and Output Vital Signs (last 24 hours): Temp Pulse Resp BP Pulse Ox 99.1 F 78 19 118/57 L 98 08/06/17 00:01 08/06/17 02:00 08/06/17 00:01 08/06/17 00:01 08/06/17 00:01 - Medications Medications: Current Medications Clopidogrel Bisulfate (Plavix) 75 mg PO DAILY [facility] Last Admin: 08/05/17 10:00 Dose: 75 mg Glyburide (Micronase) 1.25 mg PO BRKDIN [facility] Last Admin: 08/05/17 07:50 Dose: Not Given Heparin Sodium (Porcine) (Heparin) 4,000 units IVP TTS [facility] Last Admin: 08/04/17 11:30 Dose: 4,000 units Isosorbide Mononitrate (Imdur) 60 mg PO ACB [facility] Last Admin: 08/05/17 08:07 Dose: Not Given Lopinavir/Ritonavir (Kaletra 200-50 Mg) 2 cap PO BID [facility] Last Admin: 08/05/17 17:33 Dose: 2 cap Metoprolol Tartrate (Lopressor) 25 mg PO BRKDIN [facility] Last Admin: 08/05/17 17:33 Dose: 25 mg Nateglinide (Starlix) 60 mg PO AC [facility] Last Admin: 08/05/17 07:50 Dose: Not Given Pantoprazole Sodium (Protonix Ec Tab) 40 mg PO 0600 [facility] Last Admin: 08/05/17 08:20 Dose: 40 mg Raltegravir (Isentress) 400 mg PO BID [facility] Last Admin: 08/05/17 17:33 Dose: 400 mg Sevelamer HCl (Renagel) 800 mg PO TID [facility] Last Admin: 08/05/17 17:33 Dose: 800 mg Vitamin B Complex/Vit C/Folic Acid (Nephro-Анна) 1 tab PO 0800 [facility] Last Admin: 08/05/17 08:20 Dose: 1 tab - Labs Labs: 08/05/17 06:30 08/05/17 06:30 PT 10.9 SECONDS (9.4-12.5) 08/03/17 20:09 INR 1.00 (0.93-1.08) 08/03/17 20:09 APTT 31.7 Seconds (25.1-36.5) 08/03/17 20:09
[2017-08-06] MEDS: Pantoprazole 40 mg EC Tab PO SCH (06:23)
[2017-08-06 07:09] LABS: BASO # 0.01 K/mm3 (0.0-2.0); BASO % 0.3 % (0.0-3.0); EOS # 0.2 (0.0-0.7); EOS % 5.9 % (1.5-5.0); GRAN # 1.91 (1.4-6.5); GRAN % 49.1 % (50.0-68.0); HEMATOCRIT 32.7 % (36.0-48.0); LYMPH # 1.3 (1.2-3.4); LYMPH % 32.4 % (22.0-35.0); MEAN CELL VOLUME 98.8 fl (80.0-105.0); MEAN CORPUSCULAR HGB CONC 29.4 g/dl (31.0-37.0); MEAN PLATELET VOLUME 9.8 fl (7.0-11.0); MONO # 0.5 (0.1-0.6); MONO % 12.3 % (1.0-6.0); RED CELL DISTRIBUTION WIDTH 21.7 % (11.5-14.5); WHITE BLOOD COUNT 3.9 10^3/ul (4.5-11.0)
[2017-08-06 07:39] LABS: ALB/GLOB RATIO 0.8 (1.1-1.8); BILIRUBIN,TOTAL 0.6 mg/dL (0.2-1.3); CALCIUM 9.6 mg/dL (8.4-10.5); MAGNESIUM 2.4 mg/dL (1.7-2.2); PHOSPHOROUS 5.8 mg/dL (2.5-4.5); POTASSIUM 4.7 mmol/L (3.6-5.0); TOTAL PROTEIN 7.9 g/dL (5.8-8.3)
--- NOTE | 2017-08-06 10:45 | CP.PCM.DIS ---
<Anuj Herring - Last Filed: 08/06/17 10:49> Provider - Provider Date of Admission: 08/03/17 21:16 Attending physician: Shavon Polo MD Primary care physician: Joel Ho MD Time Spent in preparation of Discharge (in minutes): 45 Diagnosis - Discharge Diagnosis (1) ESRD (end stage renal disease) Status: Chronic Priority: Medium (2) Hemodialysis catheter malfunction Status: Acute Priority: Medium (3) HIV disease Status: Chronic Priority: Medium (4) HTN (hypertension) Status: Chronic Priority: Medium Hospital Course - Lab Results Lab Results: Most Recent Lab Values WBC 3.9 10^3/ul (4.5-11.0) L D 08/06/17 06:30 RBC 3.31 10^6/uL (3.5-6.1) L 08/06/17 06:30 Hgb 9.6 g/dL (12.0-16.0) L 08/06/17 06:30 Hct 32.7 % (36.0-48.0) L 08/06/17 06:30 MCV 98.8 fl (80.0-105.0) 08/06/17 06:30 MCH 29.0 pg (25.0-35.0) 08/06/17 06:30 MCHC 29.4 g/dl (31.0-37.0) L 08/06/17 06:30 RDW 21.7 % (11.5-14.5) H 08/06/17 06:30 Plt Count 129 10^3/uL (120.0-450.0) 08/06/17 06:30 MPV 9.8 fl (7.0-11.0) 08/06/17 06:30 Gran % 49.1 % (50.0-68.0) L 08/06/17 06:30 Lymph % (Auto) 32.4 % (22.0-35.0) 08/06/17 06:30 [place] % (Auto) 12.3 % (1.0-6.0) H 08/06/17 06:30 Eos % (Auto) 5.9 % (1.5-5.0) H 08/06/17 06:30 Baso % (Auto) 0.3 % (0.0-3.0) 08/06/17 06:30 Gran # 1.91 (1.4-6.5) 08/06/17 06:30 Lymph # 1.3 (1.2-3.4) 08/06/17 06:30 [place] # 0.5 (0.1-0.6) 08/06/17 06:30 Eos # 0.2 (0.0-0.7) 08/06/17 06:30 Baso # 0.01 K/mm3 (0.0-2.0) 08/06/17 06:30 PT 10.9 SECONDS (9.4-12.5) 08/03/17 20:09 INR 1.00 (0.93-1.08) 08/03/17 20:09 APTT 31.7 Seconds (25.1-36.5) 08/03/17 20:09 Sodium 137 mmol/L (132-148) 08/06/17 06:30 Potassium 4.7 mmol/L (3.6-5.0) 08/06/17 06:30 Chloride 95 mmol/L (98-107) L 08/06/17 06:30 Carbon Dioxide 35 mmol/L (21-33) H 08/06/17 06:30 Anion Gap 11 (10-20) 08/06/17 06:30 BUN 32 mg/dL (7-21) H 08/06/17 06:30 Creatinine 5.6 mg/dl (0.7-1.2) H 08/06/17 06:30 Est GFR ( Amer) 10 08/06/17 06:30 Est GFR (Non-Af Amer) 8 08/06/17 06:30 Random Glucose 84 mg/dL (70-110) 08/06/17 06:30 Hemoglobin A1c 4.3 % (4.2-6.5) 08/05/17 10:40 Calcium 9.6 mg/dL (8.4-10.5) 08/06/17 06:30 Phosphorus 5.8 mg/dL (2.5-4.5) H 08/06/17 06:30 Magnesium 2.4 mg/dL (1.7-2.2) H 08/06/17 06:30 Total Bilirubin 0.6 mg/dL (0.2-1.3) 08/06/17 06:30 AST 71 U/L (14-36) H D 08/06/17 06:30 ALT 16 U/L (7-56) 08/06/17 06:30 Alkaline Phosphatase 118 U/L (38-126) 08/06/17 06:30 Total Protein 7.9 g/dL (5.8-8.3) 08/06/17 06:30 Albumin 3.4 g/dL (3.0-4.8) 08/06/17 06:30 Globulin 4.5 gm/dL 08/06/17 06:30 Albumin/Globulin Ratio 0.8 (1.1-1.8) L 08/06/17 06:30 Blood Type B POSITIVE 08/03/17 20:25 Antibody Screen Negative 08/03/17 20:25 BBK History Checked Patient has bt 08/03/17 20:25 - Hospital Course Hospital Course: Patient is a 57 year old female with a PMHx of diabetes, HTN, HLD, ESRD on HD ( MWF), HIV, foot ulcerations, peripheral vascular disease who was admitted for evaluation and treatment of a HD access difficultly. With the use of physical examinations, lab work, and imaging the patient was diagnosed with and treated for a protocath malfunction along with the patients other chronic medical conditions. During their hospital stay the patient was seen by interventional radiology and nephrology whose recommendations were both appreciated and utilized in the care for this patient. During their hospital stay the patient underwent insertion of a dialysis cathether in addition to hemodialysis sessions. Patient was treated with antihypertensive medications amongst other empiric/therapeutic medications. At this time the patient is medically stable for discharge. Patient understands and appreciates discharge plan. Patient instructed to follow up with primary care physicians and referrals within three to five days from discharge. Furthermore, the patient is instructed to take medications as prescribed and to return to emergency room for evaluation of intractable headache, fever, chills, dizziness, chest pain, shortness of breath , abdominal pain, nausea, vomiting, diarrhea, constipation, and urinary symptoms. This is a brief summary of the patients hospital course. Please see patient chart for full details. Discharge Exam - Head Exam Head Exam: ATRAUMATIC, NORMOCEPHALIC - Additional Findings Additional findings: - Constitutional Appears: No Acute Distress - Head Exam Head Exam: ATRAUMATIC, NORMOCEPHALIC - Eye Exam Eye Exam: EOMI, PERRL - ENT Exam ENT Exam: Mucous Membranes Moist - Respiratory Exam Respiratory Exam: Clear to Ausculation Bilateral. absent: Rales, Wheezes - Cardiovascular Exam Cardiovascular Exam: REGULAR RHYTHM, +S1, +S2 - GI/Abdominal Exam GI & Abdominal Exam: Soft. absent: Tenderness - Neurological Exam Neurological Exam: Alert, Awake, Oriented x3 - Psychiatric Exam Psychiatric exam: Normal Affect, Normal Mood - Skin Skin Exam: Dry, Intact, Warm Discharge Plan - Discharge Medications Prescriptions: Isosorbide Mononitrate [Imdur] 60 mg PO ACB 14 Days tab Lopinavir/Ritonavir [Kaletra 200 MG-50 MG] 2 cap PO BID 14 Days cap RX: Raltegravir Potassium [Isentress] 400 mg PO BID 14 Days tab RX: Sevelamer [Renagel] 800 mg PO TID 14 Days tab - Follow Up Plan Condition: STABLE Disposition: NURSING FACILITY MEDICAID CERT Additional Instructions: Patient Instructions: 1. Take medications as prescribed. New medications: - Discontinue use of glyburide and starlix. - Start medium dose insulin sliding scale lispro with glucose checks before meals and at bedtime - Isosorbide Mononitrate [Imdur] 60 mg PO ACB - Lopinavir/Ritonavir [Kaletra 200 MG-50 MG] 2 cap PO BID - Raltegravir Potassium [Isentress] 400 mg PO BID - Sevelamer [Renagel] 800 mg PO TID 14 Days tab 2. Follow up with PMD and referrals within three to five days from discharge. 3. Return to the emergency room for evaluation of intractable headache, fever, chills, dizziness, chest pain, shortness of breath, abdominal pain, nausea, vomiting, diarrhea, constipation, and urinary symptoms. Referrals: Joel Ho MD [Primary Care Provider] - Follow up with primary <Shavon Polo - Last Filed: 08/06/17 11:11> Provider - Provider Date of Admission: 08/03/17 21:16 Attending physician: Shavon Polo MD Primary care physician: Joel Ho MD Hospital Course - Lab Results Lab Results: Most Recent Lab Values WBC 3.9 10^3/ul (4.5-11.0) L D 08/06/17 06:30 RBC 3.31 10^6/uL (3.5-6.1) L 08/06/17 06:30 Hgb 9.6 g/dL (12.0-16.0) L 08/06/17 06:30 Hct 32.7 % (36.0-48.0) L 08/06/17 06:30 MCV 98.8 fl (80.0-105.0) 08/06/17 06:30 MCH 29.0 pg (25.0-35.0) 08/06/17 06:30 MCHC 29.4 g/dl (31.0-37.0) L 08/06/17 06:30 RDW 21.7 % (11.5-14.5) H 08/06/17 06:30 Plt Count 129 10^3/uL (120.0-450.0) 08/06/17 06:30 MPV 9.8 fl (7.0-11.0) 08/06/17 06:30 Gran % 49.1 % (50.0-68.0) L 08/06/17 06:30 Lymph % (Auto) 32.4 % (22.0-35.0) 08/06/17 06:30 [place] % (Auto) 12.3 % (1.0-6.0) H 08/06/17 06:30 Eos % (Auto) 5.9 % (1.5-5.0) H 08/06/17 06:30 Baso % (Auto) 0.3 % (0.0-3.0) 08/06/17 06:30 Gran # 1.91 (1.4-6.5) 08/06/17 06:30 Lymph # 1.3 (1.2-3.4) 08/06/17 06:30 [place] # 0.5 (0.1-0.6) 08/06/17 06:30 Eos # 0.2 (0.0-0.7) 08/06/17 06:30 Baso # 0.01 K/mm3 (0.0-2.0) 08/06/17 06:30 PT 10.9 SECONDS (9.4-12.5) 08/03/17 20:09 INR 1.00 (0.93-1.08) 08/03/17 20:09 APTT 31.7 Seconds (25.1-36.5) 08/03/17 20:09 Sodium 137 mmol/L (132-148) 08/06/17 06:30 Potassium 4.7 mmol/L (3.6-5.0) 08/06/17 06:30 Chloride 95 mmol/L (98-107) L 08/06/17 06:30 Carbon Dioxide 35 mmol/L (21-33) H 08/06/17 06:30 Anion Gap 11 (10-20) 08/06/17 06:30 BUN 32 mg/dL (7-21) H 08/06/17 06:30 Creatinine 5.6 mg/dl (0.7-1.2) H 08/06/17 06:30 Est GFR ( Amer) 10 08/06/17 06:30 Est GFR (Non-Af Amer) 8 08/06/17 06:30 Random Glucose 84 mg/dL (70-110) 08/06/17 06:30 Hemoglobin A1c 4.3 % (4.2-6.5) 08/05/17 10:40 Calcium 9.6 mg/dL (8.4-10.5) 08/06/17 06:30 Phosphorus 5.8 mg/dL (2.5-4.5) H 08/06/17 06:30 Magnesium 2.4 mg/dL (1.7-2.2) H 08/06/17 06:30 Total Bilirubin 0.6 mg/dL (0.2-1.3) 08/06/17 06:30 AST 71 U/L (14-36) H D 08/06/17 06:30 ALT 16 U/L (7-56) 08/06/17 06:30 Alkaline Phosphatase 118 U/L (38-126) 08/06/17 06:30 Total Protein 7.9 g/dL (5.8-8.3) 08/06/17 06:30 Albumin 3.4 g/dL (3.0-4.8) 08/06/17 06:30 Globulin 4.5 gm/dL 08/06/17 06:30 Albumin/Globulin Ratio 0.8 (1.1-1.8) L 08/06/17 06:30 Blood Type B POSITIVE 08/03/17 20:25 Antibody Screen Negative 08/03/17 20:25 BBK History Checked Patient has bt 08/03/17 20:25 Attending/Attestation - Attestation I have personally seen and examined this patient.: Yes I have fully participated in the care of the patient.: Yes I have reviewed all pertinent clinical information, including history, physical exam and plan: Yes Notes (Text): 08/06/17 11:08 57 year old female with past medical history of diabetes, hypertension, dyslipidemia, ESRD on HD, HIV and peripheral vascular disease who presented dialysis catheter dysfunction. IR evaluation was appreciated. Case was discussed with Dr. Ho for special catheter placement possibly next week. Patient was able to tolerate hemodialysis yesterday and today. Patient reported history of diabetes on glyburide and starlix. However her sugars were low in the hospital and these medications were held. A1c level was only 4.3. We recommended to discontinue glyburide and starlix and cover with insulin ss. Continue with home medications for HIV and hypertension. Patient is discharged today to [facility]. Follow up with IR next week. Diabetic medications held as above. Shavon Polo MD Hospitalist.
[2017-08-06] MEDS: Multivitamin Vitamin B Complex (Nephro-Vite) Tab PO SCH (11:06)
[2017-08-06] MEDS: Lopinavir/Ritonavir Tab PO SCH (11:08)
[2017-08-06 13:38] VITALS: BP 178/85; PULSE 76; RESP 18; TEMP 98.6
== END 2017-08-06 15:03 | DRG 314 ==
LOC: ED 18:42 → ERH 21:16 → 3RSO 23:19
PROVIDERS: ADMIT Hospitalist; ATTEND Internal Medicine
PROC: 02H633Z Insertion of Infusion Device into Right Atrium, Percutaneous Approach (ICD-10-PCS; principal; 2017-08-03)
PROC: B546ZZA Ultrasonography of Right Subclavian Vein, Guidance (ICD-10-PCS; 2017-08-03)
PROC: 5A1D70Z Performance of Urinary Filtration, Intermittent, Less than 6 Hours Per Day (ICD-10-PCS; 2017-08-04)
DX: T82.510A Breakdown (mechanical) of surgically created arteriovenous fistula, initial encounter (principal); N18.6 End stage renal disease; B20 Human immunodeficiency virus [HIV] disease; N25.81 Secondary hyperparathyroidism of renal origin; L97.429 Non-pressure chronic ulcer of left heel and midfoot with unspecified severity; E11.621 Type 2 diabetes mellitus with foot ulcer; E11.51 Type 2 diabetes mellitus with diabetic peripheral angiopathy without gangrene; I12.9 Hypertensive chronic kidney disease with stage 1 through stage 4 chronic kidney disease, or unspecified chronic kidney disease; E11.649 Type 2 diabetes mellitus with hypoglycemia without coma; E11.22 Type 2 diabetes mellitus with diabetic chronic kidney disease; F03.90 Unspecified dementia, unspecified severity, without behavioral disturbance, psychotic disturbance, mood disturbance, and anxiety; E78.5 Hyperlipidemia, unspecified; E87.5 Hyperkalemia; E03.9 Hypothyroidism, unspecified; H40.9 Unspecified glaucoma; E83.39 Other disorders of phosphorus metabolism; D64.9 Anemia, unspecified; Y83.2 Surgical operation with anastomosis, bypass or graft as the cause of abnormal reaction of the patient, or of later complication, without mention of misadventure at the time of the procedure; Z79.4 Long term (current) use of insulin; Z99.2 Dependence on renal dialysis; Z89.511 Acquired absence of right leg below knee; Z87.891 Personal history of nicotine dependence

== ENCOUNTER 2017-08-18 13:35 | Day surgery (SDC) | payer MEDICARE, OTHER ==
[2017-08-15 11:44] VITALS: BMI 28.3
[2017-08-18 14:46] LABS: BASO # 0.03 K/mm3 (0.0-2.0); BASO % 0.7 % (0.0-3.0); EOS # 0.3 (0.0-0.7); EOS % 7.2 % (1.5-5.0); GRAN # 2.43 (1.4-6.5); GRAN % 56.1 % (50.0-68.0); HEMATOCRIT 35.1 % (36.0-48.0); LYMPH # 1.4 (1.2-3.4); LYMPH % 31.2 % (22.0-35.0); MEAN CELL VOLUME 97.2 fl (80.0-105.0); MEAN CORPUSCULAR HEMOGLOBIN 29.9 pg (25.0-35.0); MEAN CORPUSCULAR HGB CONC 30.8 g/dl (31.0-37.0); MEAN PLATELET VOLUME 10.7 fl (7.0-11.0); MONO # 0.2 (0.1-0.6); MONO % 4.8 % (1.0-6.0); RED CELL DISTRIBUTION WIDTH 19.8 % (11.5-14.5); WHITE BLOOD COUNT 4.3 10^3/ul (4.5-11.0)
[2017-08-18 14:53] LABS: INR 0.96 (0.93-1.08); PARTIAL THROMBOPLASTIN TIME 34.7 Seconds (25.1-36.5)
[2017-08-18 15:30] LABS: CALCIUM 10.7 mg/dL (8.4-10.5); POTASSIUM 5.5 mmol/L (3.6-5.0)
[2017-08-18] MEDS ORDERED: Lidocaine 2% Inj (20ml) ONE (15:48)
[2017-08-18] MEDS ORDERED: Midazolam 2 MG/2 ML VIAL ONE (15:49)
[2017-08-18] MEDS ORDERED: Vancomycin 500 mg (Oral/Rectal USE) ONE (15:53)
[2017-08-18] MEDS ORDERED: Oxycodone/Acetaminophen 5/325 mg Tab PO PRN (16:35)
[2017-08-18 16:57] VITALS: TEMP 98.2
[2017-08-18 17:00] VITALS: PULSE 59
--- NOTE | 2017-08-18 19:55 | VASCULAR ---
PROCEDURE: Replace tunneled right subclavian dialysis catheter. Remove tunneled trans lumbar dialysis catheter CLINICAL HISTORY: End stage renal disease. Very limited venous access. Malfunctioning trans lumbar dialysis catheter. Replace malfunctioning right subclavian dialysis catheter PHYSICIAN(S): Joel Ho M.D. TECHNIQUE: The relative risks and indications for the procedure were explained to the patient and consent obtained. The patient was placed supine on the arteriogram table and the tunneled right subclavian dialysis catheter prepped and draped in the usual sterile fashion. Antibiotics were given prior to the procedure. 1% Xylocaine was used to anesthetize the skin soft tissues at the vein insertion site. A 2 cm incision was performed and the catheter bluntly dissected. Both ends of the catheter controlled and the catheter transected. The cuff and soft tissue portion of the catheter were anesthetized with 1% Xylocaine. Blunt dissection was performed. The cuffed portion of the catheter was removed. A 0.035 angled Glidewire was advanced through the catheter fragment and placed in the IVC. The old catheter was removed. The sheath was placed for the new catheter insertion. A 27cm Nextgen catheter was advanced with its tip in the right atrium. A new retrograde tunnel below right clavicle was performed. The catheter was trimmed and the hub attached. The catheter was secured. The incision was closed with interrupted sutures. The right translumbar tunneled catheter was prepped and draped usual sterile fashion. 1 percent xylocaine was used to anesthetize skin soft tissues. The catheter was bluntly dissected and removed. A single interrupted suture was placed at the exit site. The patient tolerated the procedure well. FINDINGS: IMPRESSION: 1. Replacement of the patient's tunneled right subclavian dialysis catheter. A 27cm Nextgen catheter was placed with its tip in the right atrium. 2. Removal the patient's malfunctioning tunneled right trans lumbar dialysis catheter
[2017-08-18 20:41] VITALS: BP 142/64; RESP 18; O2SAT 97
== END 2017-08-18 20:29 | disposition designated cancer center or children's hospital (05) ==
LOC: SDSVAS 13:35
PROVIDERS: ATTEND Radiology Vascular & Interventional Radiology
DX: T82.41XA Breakdown (mechanical) of vascular dialysis catheter, initial encounter (principal); N18.6 End stage renal disease; I12.0 Hypertensive chronic kidney disease with stage 5 chronic kidney disease or end stage renal disease; E11.22 Type 2 diabetes mellitus with diabetic chronic kidney disease; Z99.2 Dependence on renal dialysis; Z79.4 Long term (current) use of insulin; Y84.8 Other medical procedures as the cause of abnormal reaction of the patient, or of later complication, without mention of misadventure at the time of the procedure
CPT/HCPCS: 36415; 36581; 36589; 80048; 85025; 85610; 85730; 99152; 99153; C1769; J1644; J2250; J2405; J3010

== ENCOUNTER 2017-12-29 11:23 | Emergency (ER) | payer MEDICARE, OTHER ==
[2017-12-29 11:48] VITALS: BMI 29.9
[2017-12-29] MEDS ORDERED: Alum-Mag Hydrox-Simethicone Susp (30 mL) PO STA (11:56)
[2017-12-29] MEDS ORDERED: Atrop/Hyosc/Scopal/PB Elixir (120 ml) PO STA (11:56)
[2017-12-29 12:04] VITALS: RESP 18
--- NOTE | 2017-12-29 12:05 | ED PDOC ---
Arrival/HPI - General Time Seen by Provider: 12/29/17 11:32 Historian: Patient - History of Present Illness Narrative History of Present Illness (Text): 12/29/17 11:58 A 57 year old female, whose past medical history includes diabetes, hypertension , ESRD with hemodialysis on M/W/F (last full treatment received yesterday), right chest shunt, right BKA, and HIV with last CD4 count unknown, presents to the emergency department complaining of abdominal pain today. Patient notes taking Pepto-Bismol and Maalox, with no relief. Patient secondarily complains of a wound to right back from prior catheter placement. She notes her nurse from dialysis noted mild bleeding and pus a few days ago. Patient denies any fever, chills, nausea, vomiting, diarrhea, chest pain, shortness of breath or ay other complaints. Time/Duration: Other (today) Symptom Course: Unchanged Context: Home Past Medical History - Provider Review Nursing Documentation Reviewed: Yes - Infectious Disease Hx of Infectious Diseases: None - Cardiac Hx Congestive Heart Failure: Yes Hx Hypertension: Yes - Pulmonary Hx Respiratory Disorders: No - Neurological Hx Dementia: Yes - HEENT Hx HEENT Disorder: Yes (wears glasses) Hx Glaucoma: Yes - Renal Hx Renal Disorder: Yes Hx Kidney Stones: No - Endocrine/Metabolic Hx Hyperthyroidism: Yes Hx Hypothyroidism: Yes - Hematological/Oncological Hx Blood Transfusions: (UNKNOWN) - Integumentary Hx Dermatological Disorder: No - Musculoskeletal/Rheumatological Hx Musculoskeletal Disorders: Yes (Right BKA) - Gastrointestinal Hx Gastrointestinal Disorders: No - Genitourinary/Gynecological Hx Genitourinary Disorders: Yes Other/Comment: oliguria, on hemodialysis MWF - Psychiatric Hx Anxiety: Yes Hx Substance Use: No - Surgical History Hx Amputation: Yes (Right BKA) - Anesthesia Hx Anesthesia Reactions: No Hx Malignant Hyperthermia: No - Suicidal Assessment Feels Threatened In Home Enviroment: No Family/Social History - Physician Review Nursing Documentation Reviewed: Yes Family/Social History: No Known Family HX Smoking Status: Former Smoker Hx Alcohol Use: No Hx Substance Use: No Allergies/Home Meds Allergies/Adverse Reactions: Allergies No Known Allergies Allergy (Verified 12/29/17 11:49) Home Medications: Home Meds Medication Instructions Recorded Confirmed Brimonidine Tartrate/Timolol 1 drop OP Q12H 04/14/14 04/19/18 [Combigan 0.2%-0.5% Eye Drops] Emtricitabine/Tenofovir Diso 1 tab PO DAILY 07/29/17 12/29/17 [Truvada 200 MG-300 MG] Menthol/Zinc Oxide [Calmoseptine 1 applic TP Q8H 07/29/17 12/29/17 Ointment] Review of Systems - Physician Review All systems were reviewed & negative as marked: Yes - Review of Systems Constitutional: absent: Fevers, Night Sweats Respiratory: absent: SOB Cardiovascular: absent: Chest Pain Gastrointestinal: Abdominal Pain. absent: Diarrhea, Nausea, Vomiting Skin: Other (wound to right back) Physical Exam Vital Signs Reviewed: Yes Vital Signs Temp Pulse Resp BP Pulse Ox 12/29/17 19:35 80 18 122/74 100 12/29/17 18:09 98.1 F 84 18 119/78 98 12/29/17 15:47 75 18 118/63 96 12/29/17 13:32 79 18 122/65 96 12/29/17 12:01 98.2 F 85 18 124/62 96 Temperature: Afebrile Blood Pressure: Normal Pulse: Regular Respiratory Rate: Normal Appearance: Positive for: Well-Appearing, Non-Toxic, Comfortable Pain Distress: None Mental Status: Positive for: Alert and Oriented X 3 - Systems Exam Head: Present: Atraumatic, Normocephalic Pupils: Present: PERRL Extroacular Muscles: Present: EOMI Conjunctiva: Present: Normal Mouth: Present: Moist Mucous Membranes Neck: Present: Normal Range of Motion Respiratory/Chest: Present: Clear to Auscultation, Good Air Exchange. No: Respiratory Distress, Accessory Muscle Use Cardiovascular: Present: Regular Rate and Rhythm, Normal S1, S2. No: Murmurs Abdomen: Present: Tenderness (Epigastric tenderness to palpation), Normal Bowel Sounds, Guarding. No: Distention, Peritoneal Signs, Rebound Back: Present: Normal Inspection Upper Extremity: Present: Normal Inspection. No: Cyanosis, Edema Lower Extremity: Present: Edema (trace edema to left lower extremity), NORMAL PULSES, Neurovascularly Intact, Other (Right BKA, 4x2 ulcer to left heel ). No : CALF TENDERNESS, Tenderness, Temperature Abnormalties Neurological: Present: GCS=15, CN II-XII Intact, Speech Normal Skin: Present: Warm, Dry, Normal Color, Other (well healing wound to right back with trace fluid, no bleeding or fluctuance). No: Rashes Psychiatric: Present: Alert, Oriented x 3, Normal Insight, Normal Concentration Medical Decision Making ED Course and Treatment: 12/29/17 11:58 Impression: A 57 year old female with abdominal pain. Patient notes well healing wound to right back. Differential Diagnosis included but are not limited to: Gastritis vs. Pancreatitis Plan: -- Abdomen and pelvis CT -- Labs -- Maalox, elixir, Pepcid and Lidocaine -- Reassess and disposition Progress Notes: Report Date : 12/29/2017 14:34:36 PROCEDURE: CT Abdomen and Pelvis without intravenous contrast Dictator : Rodney Chavez MD IMPRESSION: 1. Although a cirrhotic liver is not clearly evident given smooth peripheral appearance, portal venous obstruction is is suggested based on recanalization of umbilical vein and associated varices. Inferior vena cava appears small. 2. Prior cholecystectomy. 3. Small lucency upper pole left kidney stone too small to characterize. Lack images contrast further limits the interpretation. No obstructive uropathy bilaterally. Bilateral renal cortical atrophy noted. 4. Limited anterior wedge compression fracture T12, indeterminate age. 12/29/17 15:30 On re-evaluation, patient feels better and is resting comfortably. States her abdominal pain has improved after medication. The wound on her right back does not appear infected. It's healing properly. 12/29/17 17:[address] Ramirez, who recommends GI consult. States no surgical intervention needed at this time. GI health safety and environment manager Dr. Charleen faye, awaiting call backs. 12/29/17 17:58 Patient reports she does not want to stay in the hospital and would like to go home. The patient is choosing to leave against medical advice. I have personally explained to the patient that choosing to do so may result in permanent bodily harm or . I have discussed at great length that without further evaluation and monitoring there may be unforeseen circumstances and/or deterioration causing permanent bodily harm or as a result of their choice. The patient is alert, oriented, and shows the mental capacity to make clear decisions regarding the patients health care at this time. The patient continues to wish to leave against medical advice. In light of the patients decision to leave against medical advice, follow-up has been arranged and the patient is aware of the importance to following up as instructed. The patient has been advised that they should return to the emergency room immediately if they change their mind at any time, or if their condition begins to change or worsen in any way. - Lab Interpretations Lab Results: 12/29/17 14:00 12/29/17 14:00 Lab Results 12/29/17 14:00: Sodium 139, Potassium 4.2, Chloride 92 L, Carbon Dioxide 31, Anion Gap 21 H, BUN 34 H, Creatinine 5.4 H, Est GFR ( Amer) 10, Est GFR ( Non-Af Amer) 8, Random Glucose 111 H, Calcium 9.4, Total Bilirubin 0.4, AST 25, ALT 17, Alkaline Phosphatase 197 H D, Total Protein 9.4 H, Albumin 4.7, Globulin 4.6, Albumin/Globulin Ratio 1.0 L, Lipase 117 12/29/17 14:00: WBC 4.0 L, RBC 4.44, Hgb 13.7 D, Hct 43.0, MCV 96.8, MCH 30.9, MCHC 31.9, RDW 20.6 H, Plt Count 137, MPV 9.8, Gran % 65.2, Lymph % (Auto) 27.4 , [place] % (Auto) 5.8, Eos % (Auto) 1.3 L, Baso % (Auto) 0.3, Gran # 2.60, Lymph # (Auto) 1.1 L, [place] # (Auto) 0.2, Eos # (Auto) 0.1, Baso # (Auto) 0.01 12/29/17 12:16: POC Glucose (mg/dL) 121 H I have reviewed the lab results: Yes - RAD Interpretation Radiology Orders: 12/29/17 11:55 ABD & PELVIS W/O PO OR IV CONT [CT] Stat - Medication Orders Current Medication Orders: Discontinued Medications Al Hydrox/Mg Hydrox/Simethicone (Maalox Plus 30 Ml) 30 ml PO STAT STA Stop: 12/29/17 11:57 Last Admin: 12/29/17 12:40 Dose: 30 ml Belladonna/Phenobarbital ( Elixir) 5 ml PO STAT STA Stop: 12/29/17 11:57 Last Admin: 12/29/17 12:50 Dose: 5 ml Famotidine (Pepcid) 20 mg IVP STAT STA Stop: 12/29/17 11:56 Last Admin: 12/29/17 12:40 Dose: 20 mg IVP Administration Document 12/29/17 12:40 SF (Rec: 12/29/17 12:40 SF [email or web address] Charges for Administration # of IVP Administrations 1 Lidocaine HCl (Lidocaine 2% Viscous) 15 ml PO STAT STA Stop: 12/29/17 11:57 Last Admin: 12/29/17 12:40 Dose: 15 ml - Scribe Statement The provider has reviewed the documentation as recorded by the Arashibe Rani Simmons Provider Scribe Attestation: All medical record entries made by the Scribe were at my direction and personally dictated by me. I have reviewed the chart and agree that the record accurately reflects my personal performance of the history, physical exam, medical decision making, and the department course for this patient. I have also personally directed, reviewed, and agree with the discharge instructions and disposition. Disposition/Present on Arrival - Present on Arrival Any Indicators Present on Arrival: No History of DVT/PE: No History of Uncontrolled Diabetes: No Urinary Catheter: No History Surgical Site Infection Following: None - Disposition Have Diagnosis and Disposition been Completed?: Yes Diagnosis: Abdominal pain Disposition: AGAINST MEDICAL ADVICE Disposition Time: 19:57 Patient Plan: Discharge Condition: GOOD Discharge Instructions (ExitCare): Acute Abdomen (Belly Pain), Adult (DC) Additional Instructions: Neli, thank you for letting us take care of you today. Your provider was Dr. George You were treated for Abdominal Pain. The emergency medical care you received today was directed at your acute symptoms. If you were prescribed any medication, please fill it and take as directed. It may take several days for your symptoms to resolve. Return to the Emergency Department if your symptoms worsen, do not improve, or if you have any other problems. Please contact your doctor or call one of the physicians/clinics you have been referred to that are listed on the Patient Visit Information form that is included in your discharge packet. Bring any paperwork you were given at discharge with you along with any medications you are taking to your follow up visit. Our treatment cannot replace ongoing medical care by a primary care provider (PCP) outside of the emergency department. Thank you for allowing the [facility] [employer] team to be part of your care today. If you had an X-Ray or CT scan: A Radiologist will review the ED reading if any change in treatment is needed we will contact you. If you had a blood, urine, or wound culture: It will take several days for the results, if any change in treatment is needed we will contact you. If you had an STI test: It will take 48 hours for the results. Please call after 1 week if you have not heard back. Prescriptions: Ranitidine HCl [Zantac] 150 mg PO BID PRN #30 tablet PRN Reason: Pain, Mild (1-3) Referrals: [facility], [Family Provider] - Follow up with primary Forms: [employer] (Urdu)
[2017-12-29 14:07] LABS: BASO # 0.01 K/mm3 (0.0-2.0); BASO % 0.3 % (0.0-3.0); EOS # 0.1 (0.0-0.7); EOS % 1.3 % (1.5-5.0); GRAN # 2.6 (1.4-6.5); GRAN % 65.2 % (50.0-68.0); HEMOGLOBIN 13.7 g/dL (12.0-16.0); LYMPH # 1.1 (1.2-3.4); LYMPH % 27.4 % (22.0-35.0); MEAN CELL VOLUME 96.8 fl (80.0-105.0); MEAN CORPUSCULAR HEMOGLOBIN 30.9 pg (25.0-35.0); MEAN CORPUSCULAR HGB CONC 31.9 g/dl (31.0-37.0); MEAN PLATELET VOLUME 9.8 fl (7.0-11.0); MONO # 0.2 (0.1-0.6); MONO % 5.8 % (1.0-6.0); RBC 4.44 10^6/uL (3.5-6.1); RED CELL DISTRIBUTION WIDTH 20.6 % (11.5-14.5)
[2017-12-29 14:17] LABS: ALBUMIN 4.7 g/dL (3.0-4.8); CALCIUM 9.4 mg/dL (8.4-10.5)
--- NOTE | 2017-12-29 14:36 | CT ---
PROCEDURE: CT Abdomen and Pelvis without intravenous contrast HISTORY: abd pain COMPARISON: None. TECHNIQUE: Helical CT of the abdomen and pelvis was performed without oral or intravenous contrast as per referring physician request. Contrast Dose: None Radiation dose: Total exam DLP = 925.18 mGy-cm. This CT exam was performed using one or more of the following dose reduction techniques: Automated exposure control, adjustment of the mA and/or kV according to patient size, and/or use of iterative reconstruction technique. FINDINGS: LOWER THORAX: Cardiomegaly which trace anterior pericardial effusion inferiorly. No pleural effusion bilaterally. Motion artifacts from respirations obscure the exam somewhat. LIVER: Unremarkable. No gross lesion or ductal dilatation. GALLBLADDER AND BILE DUCTS: Prior cholecystectomy evident. PANCREAS: Unremarkable. No gross lesion or ductal dilatation. SPLEEN: Unremarkable. ADRENALS: Unremarkable. No mass. KIDNEYS AND URETERS: No obstructive uropathy bilaterally. Bilateral renal cortical atrophy is appreciated. Small lucency is seen at the upper midpole left kidney anteriorly, too small to characterize. Vascular calcifications are identified at the hilar regions bilaterally. VASCULATURE: The inferior vena cava appears quite small and there is an apparent recannulized umbilical vein joining with the varix at the anterior abdominal wall extending inferiorly into the left inguinal no vascular sheath. Consider significant portal venous obstruction. An atherosclerotic but nonaneurysmal abdominal aorta is appreciated. BOWEL: The stomach is mildly distended with retained fluid. The bowel is not obstructed. Mildly prominent amount retained fecal material scattered throughout the colon reflecting likely constipation. APPENDIX: Unremarkable. Normal appendix. PERITONEUM: Unremarkable. No free fluid. No free air. LYMPH NODES: There are a few mildly enlarged inguinal lymph nodes bilaterally including 1.8 x 1.1 cm right inguinal lymph node and a 1.4 x 0.8 cm left inguinal lymph node. BLADDER: Urinary bladder appears decompressed. REPRODUCTIVE: Unremarkable. BONES: Large Schmorl's nodes affects the superior and inferior endplate at L3, superior endplate of L1 and and moderate Schmorl's node affects the superior endplate of L2. Limited anterior wedge compression fracture of the T12 vertebral body is suggested anteriorly. OTHER FINDINGS: None. IMPRESSION: 1. Although a cirrhotic liver is not clearly evident given smooth peripheral appearance, portal venous obstruction is is suggested based on recanalization of umbilical vein and associated varices. Inferior vena cava appears small. 2. Prior cholecystectomy. 3. Small lucency upper pole left kidney stone too small to characterize. Lack images contrast further limits the interpretation. No obstructive uropathy bilaterally. Bilateral renal cortical atrophy noted. 4. Limited anterior wedge compression fracture T12, indeterminate age.
--- NOTE | 2017-12-29 16:24 | CP.PCM.CON ---
History of Present Illness - History of Present Illness History of Present Illness: Surgery: Dr. Ramirez Pt. is a 57 y.o AA female w/ a PMH of DM, HTN, ERSD w/ dialysis on M/W/F (last full treatment yesterday), cholecystitis, s/p cholecystectomy (10 yrs ago), right chest shunt, right BKA and HIV with last CD4 count unknown, who presents to the ED with complaint of abdominal pain that began earlier on today. Pt. states pain is sharp and is specifically located in the epigastric region. Pt. denies that pain is diffuse or radiates. Pt. denies any exacerbating or remediating factors of her current symptoms. Pt. denied fevers, chills, headache, nausea, vomiting, diarrhea and constipation. PMH- as stated in HPI PSH- Cholecystectomy (10 years ago). R BKA amputation SH- Denies use of tobacco and alcohol. Past smoker, states she quit 11-12 yrs ago. Allergies- NKA Past Patient History - Infectious Disease Hx of Infectious Diseases: None - Past Medical History & Family History Past Medical History?: Yes - Past Social History Smoking Status: Former Smoker - CARDIAC Hx Congestive Heart Failure: Yes Hx Hypertension: Yes - PULMONARY Hx Respiratory Disorders: No - NEUROLOGICAL Hx Dementia: Yes - HEENT Hx HEENT Problems: Yes (wears glasses) Hx Glaucoma: Yes - RENAL Hx Chronic Kidney Disease: Yes Hx Kidney Stones: No - ENDOCRINE/METABOLIC Hx Hyperthyroidism: Yes Hx Hypothyroidism: Yes - HEMATOLOGICAL/ONCOLOGICAL Hx Blood Transfusions: (UNKNOWN) - INTEGUMENTARY Hx Dermatological Problems: No - MUSCULOSKELETAL/RHEUMATOLOGICAL Hx Musculoskeletal Disorders: Yes (Right BKA) - GASTROINTESTINAL Hx Gastrointestinal Disorders: No - GENITOURINARY/GYNECOLOGICAL Hx Genitourinary Disorders: Yes Other/Comment: oliguria, on hemodialysis MWF - PSYCHIATRIC Hx Anxiety: Yes Hx Substance Use: No - SURGICAL HISTORY Hx Amputation: Yes (Right BKA) - ANESTHESIA Hx Anesthesia Reactions: No Hx Malignant Hyperthermia: No Meds Allergies/Adverse Reactions: Allergies Allergy/AdvReac Type Severity Reaction Status Date / Time No Known Allergies Allergy Verified 12/29/17 11:49 Physical Exam - Constitutional Appears: No Acute Distress - Head Exam Head Exam: ATRAUMATIC, NORMOCEPHALIC - GI/Abdominal Exam GI & Abdominal Exam: Soft (Significant tenderness in epigastric region ), Tenderness - Neurological Exam Neurological exam: Alert, Oriented x3 Results - Vital Signs Recent Vital Signs: Last Vital Signs Temp 98.2 F 12/29/17 12:01 Pulse 75 12/29/17 15:47 Resp 18 12/29/17 15:47 BP 118/63 12/29/17 15:47 Pulse Ox 96 12/29/17 15:47 - Labs Result Diagrams: 12/29/17 14:00 12/29/17 14:00 Labs: Laboratory Results - last 24 hr 12/29/17 12/29/17 12/29/17 12:16 14:00 14:00 WBC 4.0 L RBC 4.44 Hgb 13.7 D Hct 43.0 MCV 96.8 MCH 30.9 MCHC 31.9 RDW 20.6 H Plt Count 137 MPV 9.8 Gran % 65.2 Lymph % (Auto) 27.4 [place] % (Auto) 5.8 Eos % (Auto) 1.3 L Baso % (Auto) 0.3 Gran # 2.60 Lymph # (Auto) 1.1 L [place] # (Auto) 0.2 Eos # (Auto) 0.1 Baso # (Auto) 0.01 Sodium 139 Potassium 4.2 Chloride 92 L Carbon Dioxide 31 Anion Gap 21 H BUN 34 H Creatinine 5.4 H Est GFR ( Amer) 10 Est GFR (Non-Af Amer) 8 POC Glucose (mg/dL) 121 H Random Glucose 111 H Calcium 9.4 Total Bilirubin 0.4 AST 25 ALT 17 Alkaline Phosphatase 197 H D Total Protein 9.4 H Albumin 4.7 Globulin 4.6 Albumin/Globulin Ratio 1.0 L Lipase 117 Assessment & Plan - Assessment and Plan (Free Text) Assessment: 57y.o female with epigastric pain. Plan: - Recommend CT scan w/ contrast - Consider extra hemodialysis after imaging - Will advice further recommendations pending imaging results - Will continue to follow Will discuss with Dr. Ramirez.
[2017-12-29 18:11] VITALS: TEMP 98.1
[2017-12-29 19:35] VITALS: BP 122/74; PULSE 80; O2SAT 100
== END 2017-12-29 19:57 | disposition left against medical advice (07) ==
LOC: ED 11:23
DX: R10.9 Unspecified abdominal pain (principal); E11.22 Type 2 diabetes mellitus with diabetic chronic kidney disease; I12.0 Hypertensive chronic kidney disease with stage 5 chronic kidney disease or end stage renal disease; N18.6 End stage renal disease; Z99.2 Dependence on renal dialysis; Z87.891 Personal history of nicotine dependence

== ENCOUNTER 2018-01-18 19:33 | Emergency (ER) | payer MEDICARE, OTHER ==
[2018-01-18 19:52] VITALS: BMI 29.9
[2018-01-18 21:37] VITALS: O2SAT 98
[2018-01-18] MEDS ORDERED: Sodium Chloride 0.9% 500 ML IV STA (21:48)
--- NOTE | 2018-01-18 21:52 | ED PDOC ---
Arrival/HPI - General Chief Complaint: Abnormal Labs Time Seen by Provider: 01/18/18 19:50 Historian: Patient, Family - History of Present Illness Narrative History of Present Illness (Text): 01/18/18 21:49 57-year-old female with a history of PVD, DM status post recannulization of the left leg performed by Dr. Romano on 01/13/18 presents today sent in by dialysis center for bacteremia based off of blood cultures. Patient denies chest pain or shortness of breath denies abdominal pain. Patient is complaining of pain in the left leg. Patient denies fevers or chills at home. pt states she was told by her vascular surgeon that she might have to have the left leg amputated. Past Medical History - Provider Review Nursing Documentation Reviewed: Yes - Travel History Have you recently traveled outside [place] w/in the past 3 mons?: No - Infectious Disease Hx of Infectious Diseases: None - Cardiac Hx Congestive Heart Failure: Yes Hx Hypertension: Yes Hx Peripheral Vascular Disease: Yes - Pulmonary Hx Respiratory Disorders: No - Neurological Hx Dementia: Yes - HEENT Hx HEENT Disorder: Yes (wears glasses) Hx Glaucoma: Yes - Renal Hx Renal Disorder: Yes Type of Dialysis Access: R chest udall Date of Last Dialysis Treatment: 01/18/18 Hx Kidney Stones: No - Endocrine/Metabolic Hx Diabetes Mellitus Type 2: Yes Hx Hyperthyroidism: Yes Hx Hypothyroidism: Yes - Hematological/Oncological Hx Blood Disorders: Yes - Integumentary Hx Dermatological Disorder: No - Musculoskeletal/Rheumatological Hx Musculoskeletal Disorders: Yes (Right BKA) Hx Falls: Yes - Gastrointestinal Hx Gastrointestinal Disorders: No - Genitourinary/Gynecological Hx Genitourinary Disorders: Yes Other/Comment: oliguria, on hemodialysis MWF - Psychiatric Hx Anxiety: Yes Hx Substance Use: No - Surgical History Hx Amputation: Yes (Right BKA) Other/Comment: vascular sx LLE - Anesthesia Hx Anesthesia: Yes Hx Anesthesia Reactions: No Hx Malignant Hyperthermia: No - Suicidal Assessment Feels Threatened In Home Enviroment: No Family/Social History - Physician Review Nursing Documentation Reviewed: Yes Family/Social History: Unknown Family HX Smoking Status: Former Smoker Hx Alcohol Use: No Hx Substance Use: No Allergies/Home Meds Allergies/Adverse Reactions: Allergies No Known Allergies Allergy (Verified 12/29/17 11:49) Home Medications: Home Meds Medication Instructions Recorded Confirmed Menthol/Zinc Oxide [Calmoseptine 1 applic TP Q8H 07/29/17 01/16/18 Ointment] Nateglinide [Starlix] 60 mg PO TID 01/12/18 01/16/18 Raltegravir Potassium [Isentress] 400 mg PO BID 01/12/18 01/16/18 Review of Systems - Review of Systems Constitutional: absent: Fatigue, Fevers Respiratory: absent: SOB, Cough Cardiovascular: absent: Chest Pain, Palpitations Gastrointestinal: absent: Abdominal Pain, Nausea, Vomiting Musculoskeletal: Arthralgias Skin: Cellulitis Physical Exam Vital Signs Reviewed: Yes Vital Signs Temp Pulse Resp BP Pulse Ox 01/18/18 23:25 98.6 F 90 14 91/50 L 98 01/18/18 21:36 98.5 F 92 H 20 90/42 L 98 Temperature: Afebrile Blood Pressure: Hypotensive Pulse: Regular Respiratory Rate: Normal Appearance: Positive for: Well-Appearing, Non-Toxic, Comfortable Pain Distress: None Mental Status: Positive for: Alert and Oriented X 3 - Systems Exam Head: Present: Atraumatic Respiratory/Chest: Present: Clear to Auscultation, Good Air Exchange. No: Respiratory Distress, Accessory Muscle Use Cardiovascular: Present: Regular Rate and Rhythm Abdomen: No: Tenderness Upper Extremity: Present: Normal ROM Lower Extremity: Present: Tenderness, Swelling, Erythema, Other (no palpable pulses. Pulses present with doppler; discoloration to all toes with blisters noted to great toe and 2nd toe, + erythema to dorsal foot and ankle with warmth to dorsal foot ankle and leg.). No: CALF TENDERNESS, Normal ROM, Neurovascularly Intact, Capillary Refill < 2 s Neurological: Present: GCS=15, Speech Normal Skin: Present: Warm, Dry, Normal Color Psychiatric: Present: Alert, Oriented x 3 Medical Decision Making ED Course and Treatment: 01/18/18 21:57 57yr old female with hx of PVD. s/p dialysis with report of + blood cultures. pt in no distress. eating food in ER. pt with + pulses in left foot present with doppler but not palpable; with discoloration to all toes, + erythema to dorsal foot and ankle with warmth to dorsal foot ankle and leg. pt seen at [facility] by surgical scrub technologist dr. mckeon. case discussed with dr. romano. will transfer to [facility] for further evaluation. pt was given Ceftazidime and vancomycin while in dialysis prior to arrival. xray; no fracture. no sq air. pt seen and evaluated by dr. rodríguez. EJ placed by dr. rodríguez case discussed with dr. betancourt (hospitalist at [facility]) accepts admission with surgical consult dr. romano case discussed with dr. Coburn ([facility]) accepts transfer. case was discussed with surgical scrub technologist dr. moreno at [facility] aware of consult. impression; cellulitis, vascular insuffiency, gangrene transfer to [facility]. - Lab Interpretations Lab Results: 01/18/18 22:22 01/18/18 22:22 Lab Results 01/18/18 22:22: Blood Type B POSITIVE, Antibody Screen Negative, BBK History Checked Patient has bt 01/18/18 22:22: WBC 9.0 D, RBC 3.49 L, Hgb 10.5 L D, Hct 33.2 L, MCV 95.1, MCH 30.1, MCHC 31.6, RDW 20.1 H, Plt Count 331, MPV 9.5, Gran % 82.9 H, Lymph % ( Auto) 8.9 L, [place] % (Auto) 7.6 H, Eos % (Auto) 0.4 L, Baso % (Auto) 0.2, Gran # 7.44 H, Lymph # (Auto) 0.8 L, [place] # (Auto) 0.7 H, Eos # (Auto) 0.0, Baso # ( Auto) 0.02 01/18/18 22:22: Sodium 141, Potassium 3.9, Chloride 98, Carbon Dioxide 30, Anion Gap 18, BUN 20, Creatinine 4.1 H, Est GFR ( Amer) 14, Est GFR (Non- Af Amer) 11, Random Glucose 138 H, Calcium 8.9, Total Bilirubin 0.6, AST 52 H D , ALT 26, Alkaline Phosphatase 236 H, Total Protein 8.5 H, Albumin 3.9, Globulin 4.6, Albumin/Globulin Ratio 0.8 L 01/18/18 22:22: PT 12.7 H, INR 1.11 H, APTT 34.1 - RAD Interpretation Radiology Orders: 01/18/18 20:39 FOOT LEFT 3 VIEWS ROUTINE [RAD] Stat - Medication Orders Current Medication Orders: Discontinued Medications Sodium Chloride (Sodium Chloride 0.9%) 250 mls @ 999 mls/hr IV .Q16M STA Stop: 01/18/18 22:17 Last Admin: 01/18/18 22:07 Dose: 999 mls/hr eMAR Start Stop Document 01/18/18 22:07 HI (Rec: 01/18/18 22:07 HI [id number]) Intravenous Solution Start Date 01/18/18 Start Time 22:07 Disposition/Present on Arrival - Present on Arrival Any Indicators Present on Arrival: Yes History of DVT/PE: No History of Uncontrolled Diabetes: Yes Urinary Catheter: No History of Decub. Ulcer: No History Surgical Site Infection Following: None - Disposition Have Diagnosis and Disposition been Completed?: Yes Diagnosis: Cellulitis, Vascular insufficiency of extremity, Gangrene Disposition: Transfer [facility] Disposition Time: 21:52 Patient Plan: Transfer To ([facility]; accepting physician dr. betancourt, dr romano, dr. coburn) Patient Problems: Current Active Problems Problem Status Onset Cellulitis Acute Vascular insufficiency of extremity Acute Gangrene Acute Condition: FAIR Discharge Instructions (ExitCare): Cellulitis (ED) Forms: [email or web address] (Kittitian)
[2018-01-18] MEDS ORDERED: Sodium Chloride 0.9% 250 ML IV STA (22:02)
[2018-01-18 22:29] LABS: BASO # 0.02 K/mm3 (0.0-2.0); BASO % 0.2 % (0.0-3.0); EOS % 0.4 % (1.5-5.0); GRAN # 7.44 (1.4-6.5); GRAN % 82.9 % (50.0-68.0); HEMOGLOBIN 10.5 g/dL (12.0-16.0); LYMPH # 0.8 (1.2-3.4); LYMPH % 8.9 % (22.0-35.0); MEAN CELL VOLUME 95.1 fl (80.0-105.0); MEAN CORPUSCULAR HEMOGLOBIN 30.1 pg (25.0-35.0); MEAN CORPUSCULAR HGB CONC 31.6 g/dl (31.0-37.0); MEAN PLATELET VOLUME 9.5 fl (7.0-11.0); MONO # 0.7 (0.1-0.6); MONO % 7.6 % (1.0-6.0); RBC 3.49 10^6/uL (3.5-6.1); RED CELL DISTRIBUTION WIDTH 20.1 % (11.5-14.5)
[2018-01-18 22:38] LABS: ALB/GLOB RATIO 0.8 (1.1-1.8); ALBUMIN 3.9 g/dL (3.0-4.8); CALCIUM 8.9 mg/dL (8.4-10.5)
[2018-01-18 22:43] LABS: INR 1.11 (0.93-1.08); PARTIAL THROMBOPLASTIN TIME 34.1 Seconds (25.1-36.5); PROTHROMBIN TIME 12.7 SECONDS (9.4-12.5)
[2018-01-18 23:26] VITALS: BP 91/50; PULSE 90; RESP 14; TEMP 98.6
--- NOTE | 2018-01-19 09:21 | RAD ---
PROCEDURE: Left Foot Radiographs. HISTORY: foot infection/gangrene COMPARISON: None. FINDINGS: BONES: No displaced fracture or destructive bony lesion is appreciated. However, there is marked osteopenia suggesting osteoporosis potentially ended advanced state. Soft tissue loss of the posterior heel suggests an ulcer but there is no periosteal reaction or cortical erosion related to the posterior calcaneus nevertheless. Instead, there is a moderate plantar calcaneal spur and ossification of the insertion of the Achilles tendon. No definitive pattern to suggest osteomyelitis throughout the exam. JOINTS: Hyperextension deformities of the metatarsal phalangeal joints are identified with hyper flexion deformities throughout the interphalangeal joints diffusely. The ankle appears in chronic plantar flexion as well. SOFT TISSUES: Vascular calcifications are scattered throughout the dorsal and plantar foot soft tissues as well as anterior and posterior ankle. Soft tissue deformity seen the posterior distal leg/ upper ankle soft tissues. OTHER FINDINGS: None. IMPRESSION: No definitive pattern to suggest osteomyelitis although ulcer is suggested at the posterior heel soft tissues. Clinical concern remains, then follow-up MRI should be considered. Extensive osteopenia suggests osteoporosis. No displaced fracture or dislocation identified.
== END 2018-01-18 23:30 | disposition short-term general hospital (02) ==
LOC: ED 19:33
DX: L03.116 Cellulitis of left lower limb (principal); E11.52 Type 2 diabetes mellitus with diabetic peripheral angiopathy with gangrene; I96 Gangrene, not elsewhere classified
CPT/HCPCS: 72HRC; 99282

== ENCOUNTER 2018-10-14 13:43 | Emergency (ER) | payer MEDICARE, OTHER ==
[2018-10-14 14:09] VITALS: BMI 40.5
[2018-10-14 14:10] VITALS: RESP 18; TEMP 98.1
[2018-10-14] MEDS ORDERED: Magnesium Citrate Oral SOL (300 ml) PO ONE (14:15)
[2018-10-14] MEDS ORDERED: Mineral Oil Enema 135 ml RC ONE (14:15)
--- NOTE | 2018-10-14 14:25 | ED PDOC ---
Arrival/HPI - General Chief Complaint: Abdominal Pain Time Seen by Provider: 10/14/18 13:50 Historian: Patient - History of Present Illness Narrative History of Present Illness (Text): 10/14/18 14:28 58 year old female, with past medical history of CHF, hypertension, dementia, anxiety, cholecystectomy, hypothyroidism, and hyperthyroidism, presents to emergency department complaining of abdominal pain and constipation for the past two days. Patient notes receiving dialysis yesterday. Patient describes abdominal pain as "cramping" and reports taking laxative last night with no significant improvement. Patient denies any fevers, chills, headache, dizziness, chest pain, shortness of breath, cough, nausea, vomiting, diarrhea, back pain, neck pain, or any other complaints. Time/Duration: Other (2 days) Symptom Onset: Gradual Symptom Course: Unchanged Activities at Onset: Light Context: Home Past Medical History - Provider Review Nursing Documentation Reviewed: Yes - Infectious Disease Hx of Infectious Diseases: None - Cardiac Hx Congestive Heart Failure: Yes Hx Hypertension: Yes - Pulmonary Hx Respiratory Disorders: No - Neurological Hx Dementia: Yes - HEENT Hx HEENT Disorder: Yes (wears glasses) Hx Glaucoma: Yes - Renal Hx Renal Disorder: Yes Hx Kidney Stones: No - Endocrine/Metabolic Hx Hyperthyroidism: Yes Hx Hypothyroidism: Yes - Hematological/Oncological Hx Blood Disorders: No - Integumentary Hx Dermatological Disorder: No - Musculoskeletal/Rheumatological Hx Falls: Yes - Gastrointestinal Hx Gastrointestinal Disorders: No - Genitourinary/Gynecological Hx Genitourinary Disorders: Yes Other/Comment: oliguria, on hemodialysis MWF - Psychiatric Hx Anxiety: Yes Hx Substance Use: No - Surgical History Hx Cholecystectomy: Yes - Anesthesia Hx Anesthesia: Yes Hx Anesthesia Reactions: No Hx Malignant Hyperthermia: No - Suicidal Assessment Feels Threatened In Home Enviroment: No Family/Social History - Physician Review Nursing Documentation Reviewed: Yes Family/Social History: Unknown Family HX Smoking Status: Never Smoked Hx Alcohol Use: No Hx Substance Use: No Allergies/Home Meds Allergies/Adverse Reactions: Allergies No Known Allergies Allergy (Verified 10/14/18 14:09) Home Medications: Home Meds Medication Instructions Recorded Confirmed RX: Folic Acid/Vit B Complex and C 0.8 mg PO DAILY 01/19/18 03/08/18 [Nephro-Анна Tablet] RX: HYDROmorphone [Dilaudid] 2 mg PO Q4 PRN 02/25/18 03/08/18 RX: Sevelamer Carbonate [Renvela] 800 mg PO TID 02/25/18 03/08/18 RX: Simethicone [Mylicon Chew Tab] 80 mg PO QID 02/25/18 03/08/18 RX: Prochlorperazine [Compazine] 25 mg RC BID PRN 03/08/18 03/08/18 Review of Systems - Physician Review All systems were reviewed & negative as marked: Yes - Review of Systems Constitutional: absent: Fevers Respiratory: absent: SOB, Cough, Wheezing Cardiovascular: absent: Chest Pain Gastrointestinal: Abdominal Pain (cramping, 2 days ), Constipation (2 days). absent: Diarrhea, Nausea, Vomiting Musculoskeletal: absent: Back Pain, Neck Pain Skin: absent: Rash Neurological: absent: Headache, Dizziness Physical Exam Vital Signs Reviewed: Yes Vital Signs Temp Pulse Resp BP Pulse Ox 10/14/18 13:44 98.1 F 67 18 116/57 L 100 Temperature: Afebrile Blood Pressure: Normal Pulse: Regular Respiratory Rate: Normal Appearance: Positive for: Well-Appearing, Non-Toxic, Comfortable Pain Distress: None Mental Status: Positive for: Alert and Oriented X 3 - Systems Exam Head: Present: Atraumatic, Normocephalic Pupils: Present: Other (blind in left eye) Extroacular Muscles: Present: EOMI Conjunctiva: Present: Normal Mouth: Present: Moist Mucous Membranes Neck: Present: Normal Range of Motion Respiratory/Chest: Present: Clear to Auscultation, Good Air Exchange. No: Respiratory Distress, Accessory Muscle Use, Wheezes, Rales, Rhonchi Cardiovascular: Present: Regular Rate and Rhythm, Normal S1, S2. No: Murmurs Abdomen: Present: Distention. No: Tenderness, Peritoneal Signs Back: Present: Normal Inspection Upper Extremity: Present: Normal Inspection. No: Cyanosis, Edema Lower Extremity: Present: Other (aka left, bka right, no tenderness to either stump). No: Edema, Erythema (no erythema to either stump ) Neurological: Present: GCS=15, Speech Normal Skin: Present: Warm, Dry, Normal Color. No: Rashes Psychiatric: Present: Alert, Oriented x 3, Normal Insight, Normal Concentration Medical Decision Making ED Course and Treatment: 10/14/18 14:53 Impression: 58 year old female presents to emergency department complaining of abdominal pain and constipation for the past 2 days. Differential Diagnosis included but are not limited to: -- SBO --Constipation Plan: --Labs --Percocet --CT a/p w/o contrast -- Fleet mineral oil enema -- X-ray abdomen -- Reassess and disposition Prior Visits: Notes and results from previous visits were reviewed. Progress Notes: 10/14/18 14:50 Son called and spoke to nurse, stating that patient had a bowel movement this morning that was normal in caliber. KUB pending 10/14/18 15:28 Reevaluated patient who is in excruciating pain. Will obtain labs as well as CT a/p. Patient admantly refusing to have lab work obtained. She wishes to continue oral analgesics as well as attempt to have a bowel movement. 10/14/18 18:12 Surgery resident evaluated patient who states patient does not need any acute surgical intervention at this time. Patient refuses to have blood work performed or IV placed. 10/14/18 19:17 Patient interrogated on whether she will agree to labs being drawn with her refusing. She wishes to sign out AMA. Risks vs benefits of leaving prior to completion of medical evaluation given to patient who still refuses to stay. AMA papers signed. Ambulance transport called. - RAD Interpretation Narrative RAD Interpretations (Text): 10/14/18 15:27 CT abdomen/pelvis: IMPRESSION: Small to medium size right-sided effusion and atelectasis. Multiple calcifications seen scattered throughout the attic ectatic lung consistent with prior exposure to granulomatous disease process. Small pericardial effusion. There is a percutaneous catheter extending through the right anterolateral abdominal wall into the hepatic parenchyma and presumably through a hepatic vein terminating in the IVC just caudal to the right atrium. Clinical correlation recommended. Large amount of stool within the distended rectum consistent with fecal retention pattern. Cholecystectomy. Atrophic kidneys likely due to chronic renal failure however clinical correlation recommended. Small cyst left kidney as described. See above discussion for additional details and findings. 10/14/18 14:15 Abdomen x-ray: FINDINGS: BOWEL: No evidence of acute mechanical bowel obstruction. No gross free intraperitoneal air BONES: Normal. OTHER FINDINGS: Percutaneous catheter seen right upper quadrant of the abdomen.. Apparent right-sided effusion and right basilar atelectasis Cholecystectomy clips IMPRESSION: No evidence of acute mechanical bowel obstruction. See above discussion for additional details and findings Radiology Orders: 10/14/18 14:15 ABDOMEN (FLAT PLATE) 1VIEW [RAD] Stat Top Lift Compressor: Radiologist - Medication Orders Current Medication Orders: Discontinued Medications Magnesium Citrate (Citrate Of Mag) 300 ml PO ONCE ONE Stop: 10/14/18 14:16 Mineral Oil (Fleet Mineral Oil Enema) 135 ml RC ONCE ONE Stop: 10/14/18 14:16 - Scribe Statement The provider has reviewed the documentation as recorded by the Scribe Morgan Ham All medical record entries made by the Scribe were at my direction and personally dictated by me. I have reviewed the chart and agree that the record accurately reflects my personal performance of the history, physical exam, medical decision making, and the department course for this patient. I have also personally directed, reviewed, and agree with the discharge instructions and disposition. Disposition/Present on Arrival - Present on Arrival Any Indicators Present on Arrival: Yes History of DVT/PE: No History of Uncontrolled Diabetes: Yes Urinary Catheter: No History of Decub. Ulcer: No History Surgical Site Infection Following: None - Disposition Have Diagnosis and Disposition been Completed?: Yes Diagnosis: Constipation Disposition: AGAINST MEDICAL ADVICE Disposition Time: 19:23 Condition: STABLE Discharge Instructions (ExitCare): Constipation in Adults, Fecal Impaction, High Fiber Diet Prescriptions: Docusate Sodium [Colace] 100 mg PO DAILY #10 capsule Metoclopramide [Reglan] 5 mg PO QID #20 tab Mineral Oil [Fleet Mineral Oil Enema 135 Ml] 135 ml RC PRN PRN #3 nma PRN Reason: Constipation Forms: [employer] (E[place]rean)
[2018-10-14] MEDS ORDERED: Oxycodone/Acetaminophen 5/325 mg Tab PO STA (15:25)
--- NOTE | 2018-10-14 17:16 | CT ---
Date of service: 10/14/2018 PROCEDURE: CT Abdomen and Pelvis. HISTORY: Abdominal pain with suspicion of obstruction on KUB COMPARISON: Massive prior CT scan abdomen pelvis 12/29/2017. TECHNIQUE: Contiguous axial images of the abdomen and pelvis performed without oral or intravenous contrast material. Additional 2D sagittal and coronal reformats generated. Radiation dose: Total exam DLP = 1027.27 mGy-cm. This CT exam was performed using one or more of the following dose reduction techniques: Automated exposure control, adjustment of the mA and/or kV according to patient size, and/or use of iterative reconstruction technique. FINDINGS: LOWER THORAX: Heart size is within range of normal. Small pericardial effusion. Moderate-sized right-sided effusion and mild right atelectasis. There are several tiny calcifications also seen in the atelectatic right lung possibly related to prior exposure to granulomatous disease process. Clinical correlation recommended. Minor atelectasis and/or scarring seen in both lung bases including the lingular and middle lobe regions. LIVER: There is a percutaneous catheter which seen extending into the right upper anterolateral abdominal wall through the hepatic parenchyma and apparently into the hepatic IVC with tip apparently at the level of the IVC at the junction of the right just caudal to the right atrium. Clinical correlation recommended. Rule out cirrhosis. There are few tiny calcifications inferior aspect right lobe liver. GALLBLADDER AND BILE DUCTS: Cholecystectomy. PANCREAS: Pancreas is atrophic and fatty replaced. SPLEEN: Spleen exhibits normal size and attenuation pattern. No splenic mass collection or calcification. ADRENALS: Unremarkable. KIDNEYS AND URETERS: Kidneys are atrophic with cortical volume loss. Vascular calcifications are present. Small cyst anterolateral upper- midpole left kidney. BLADDER: Urinary bladder incompletely distended which in part accounts for slight thick-walled appearance. Correlation with urinalysis recommended. REPRODUCTIVE: Unremarkable. APPENDIX: No evidence of acute appendicitis BOWEL: Unremarkable. No obstruction. No gross mural thickening. Moderately large amount of stool is present within the of rectum which is somewhat dilated. Findings consistent with mild fecal impaction. PERITONEUM: Unremarkable. No fluid collection. No free air. Note also made of increased vascularity within the subcutaneous tissues of the mid and lower anterior abdominal wall. Rule out cirrhosis. LYMPH NODES: Unremarkable. No enlarged lymph nodes. VASCULATURE: Unremarkable. No aortic aneurysm. Mild o aortic atherosclerotic calcification or mural plaque present. BONES: Multilevel degenerative spondylosis of the lower thoracic and lumbar spine. Multilevel chronic endplate deformity/Schmorl's node changes are again seen. OTHER FINDINGS: Note made of infiltration changes within the subcutaneous tissues of the proximal left thigh this patient who is apparent AKA. IMPRESSION: Small to medium size right-sided effusion and atelectasis. Multiple calcifications seen scattered throughout the attic ectatic lung consistent with prior exposure to granulomatous disease process. Small pericardial effusion. There is a percutaneous catheter extending through the right anterolateral abdominal wall into the hepatic parenchyma and presumably through a hepatic vein terminating in the IVC just caudal to the right atrium. Clinical correlation recommended. Large amount of stool within the distended rectum consistent with fecal retention pattern. Cholecystectomy. Atrophic kidneys likely due to chronic renal failure however clinical correlation recommended. Small cyst left kidney as described. See above discussion for additional details and findings.
--- NOTE | 2018-10-14 18:04 | CP.PCM.CON ---
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 Pain is on the mid abdominal area and dull. Pain started after HD yeterday. Reports nausea no vomiting. Per pt she was constipated for a few days. Per ED, family said she had a BM today before coming to ED. She is on dialysis MWF. Reports that she has had similar sxs after HD in the past. Denies fever, SOB, AMS, CP. CT showed no SBO. Stool Impacted in rectum. PMHx: uncontrolled DM, HTN, HLD, HIV, ESRD on HD [facility] Allergies: None Surgeries: L AKHue, Right BKA amputation, multiple placements for vascular access for dialysis, transhepatic HD catheter in 08/2018 Medications: Isentress 400mg BID, Starlix 60mg daily, metroprolol 25mg BID, procrit 10k IV MWF, isorbide mononitrate 60mg PO daily, Lopinavir/Ritonavir 200- 50 PO BID, Toprol 25mg BID, Iron pills 500mg PO TID, Vit B complex, Folic Acid Social: Lives with son, does not walkb/l amputation, former smoker Review of Systems - Review of Systems Review of Systems: see HPI Past Patient History - Infectious Disease Hx of Infectious Diseases: None - Past Medical History & Family History Past Medical History?: Yes - Past Social History Smoking Status: Never Smoked - CARDIAC Hx Congestive Heart Failure: Yes Hx Hypertension: Yes - PULMONARY Hx Respiratory Disorders: No - NEUROLOGICAL Hx Dementia: Yes - HEENT Hx HEENT Problems: Yes (wears glasses) Hx Glaucoma: Yes - RENAL Hx Chronic Kidney Disease: Yes Hx Kidney Stones: No - ENDOCRINE/METABOLIC Hx Hyperthyroidism: Yes Hx Hypothyroidism: Yes - HEMATOLOGICAL/ONCOLOGICAL Hx Blood Disorders: No - INTEGUMENTARY Hx Dermatological Problems: No - MUSCULOSKELETAL/RHEUMATOLOGICAL Hx Falls: Yes - GASTROINTESTINAL Hx Gastrointestinal Disorders: No - GENITOURINARY/GYNECOLOGICAL Hx Genitourinary Disorders: Yes Other/Comment: oliguria, on hemodialysis MWF - PSYCHIATRIC Hx Anxiety: Yes Hx Substance Use: No - SURGICAL HISTORY Hx Cholecystectomy: Yes - ANESTHESIA Hx Anesthesia: Yes Hx Anesthesia Reactions: No Hx Malignant Hyperthermia: No Meds Allergies/Adverse Reactions: Allergies Allergy/AdvReac Type Severity Reaction Status Date / Time No Known Allergies Allergy Verified 10/14/18 14:09 Physical Exam - Constitutional Appears: No Acute Distress - Head Exam Head Exam: ATRAUMATIC, NORMAL INSPECTION, NORMOCEPHALIC - Eye Exam Eye Exam: EOMI, PERRL Pupil Exam: NORMAL ACCOMODATION, PERRL - ENT Exam ENT Exam: Mucous Membranes Moist - Neck Exam Neck exam: Positive for: Normal Inspection - Respiratory Exam Respiratory Exam: NORMAL BREATHING PATTERN - Cardiovascular Exam Cardiovascular Exam: REGULAR RHYTHM - GI/Abdominal Exam GI & Abdominal Exam: Soft, Tenderness. absent: Distended, Firm, Guarding, He rnia, Rigid Additional comments: Epigastric ttp - Exam Exam: NORMAL INSPECTION - Extremities Exam Extremities exam: Negative for: full ROM Additional comments: B/L AMPUTATION - Back Exam Back exam: NORMAL INSPECTION - Neurological Exam Neurological exam: Alert, CN II-XII Intact, Oriented x3, Reflexes Normal - Psychiatric Exam Psychiatric exam: Normal Affect, Normal Mood - Skin Skin Exam: Dry, Intact, Normal Color, Warm Results - Vital Signs Recent Vital Signs: Last Vital Signs Temp 98.1 F 10/14/18 13:44 Pulse 65 10/14/18 15:44 Resp 18 10/14/18 15:44 BP 127/56 L 10/14/18 15:44 Pulse Ox 98 10/14/18 15:44 Assessment & Plan - Assessment and Plan (Free Text) Assessment: Abd pain 2/2 diabetic gastroparesis , constipation -Eryhtromycin 100mg IV -Reglan 5mg QID -Stool softner -No surgical intervention
--- NOTE | 2018-10-14 18:04 | RAD ---
Date of service: 10/14/2018 HISTORY: abdominal pain COMPARISON: None available. FINDINGS: BOWEL: No evidence of acute mechanical bowel obstruction. No gross free intraperitoneal air BONES: Normal. OTHER FINDINGS: Percutaneous catheter seen right upper quadrant of the abdomen.. Apparent right-sided effusion and right basilar atelectasis Cholecystectomy clips IMPRESSION: No evidence of acute mechanical bowel obstruction. See above discussion for additional details and findings
[2018-10-14 18:40] VITALS: BP 131/58
[2018-10-14 19:15] VITALS: PULSE 68; O2SAT 96
== END 2018-10-14 20:10 | disposition left against medical advice (07) ==
LOC: ED 13:43
DX: K59.00 Constipation, unspecified (principal); E78.5 Hyperlipidemia, unspecified; I12.0 Hypertensive chronic kidney disease with stage 5 chronic kidney disease or end stage renal disease; N18.6 End stage renal disease; Z99.2 Dependence on renal dialysis; E11.9 Type 2 diabetes mellitus without complications; I50.9 Heart failure, unspecified